=== PATIENT | male | born 1935 | race American Indian/Alaskan Native ===

== ENCOUNTER 2016-12-03 12:05 | Inpatient (IN) | payer MEDICARE ==
[~2016-12-03 12:05] MED LIST: ZITHROMAX 500 MG in NACL 0.9% 250ML 250 ML IV SCH
[2016-12-03] MEDS ORDERED: PROVENTIL IH ONE ×2 (13:13→13:18)
[2016-12-03] MEDS ORDERED: ATROVENT IH ONE ×3 (13:13→13:18)
[2016-12-03] MEDS ORDERED: LASIX IV ONE (13:18)
--- NOTE | 2016-12-03 13:19 | Emergency Department Report ---
HPI - General Chief Complaint: Dyspnea/Respdistress Time Seen by Provider: 12/03/16 13:11 - HPI HPI: PATIENT BROUGHT TO ER WITH SOB, LOW SATS, WEAKNESS AND CHEST DISCOMFORT. PATIENT DENIES ANY FEVER, BUT HAS COUGH, PRODUCTIVE OF WHITE SPUTUM, PATIENT WITH H/O HTN, AND TOBACCO ABUSE. ED Past Medical Hx - Surgical History Past Surgical History?: No - Family History Family history: hypertension - Social History Smoking Status: Current Every Day Smoker - Medications Home Medications: Home Medications Medication Instructions Recorded Confirmed Last Taken Type Ergocalciferol [Vitamin D2] 1 cap PO QWEEK 12/03/16 12/09/16 12/01/16 History Ipratropium/Albuter (Nf) 2 puff IH QID 12/03/16 12/09/16 Unknown History [Combivent Inhaler] Metoprolol [Lopressor TAB] 50 mg PO BID 12/03/16 12/09/16 12/03/16 History Ranitidine HCl [Zantac 300 MG TAB] 300 mg PO QPM 12/03/16 12/09/16 Unknown History Levofloxacin [Levaquin] 750 mg PO QDAY #7 tablet 12/05/16 12/09/16 Unknown Rx metFORMIN [Glucophage] 500 mg PO DAILY #30 12/05/16 12/09/16 12/03/16 Rx ED Review of Systems ROS: Stated complaint: SOB/CHEST TIGHTNESS/R HAND NUMBNESS Other details as noted in HPI Comment: All other systems reviewed and negative Cardiovascular: chest pain, palpitations, dyspnea on exertion, orthopnea Physical Exam - Physical Exam Physical Exam: gen: alert and oriented x3 heent: perrla, eomi cv: rrr, nl s1, s2, positive jvd bilaterally lungs: decrease b/s bilat, abd: s,nt,nd, pos bs ext: no edema neuro: no deficits psych: normal mood, skin-dry ED Medical Decision Making - Lab Data Result diagrams: 12/03/16 13:43 12/03/16 13:43 Critical care attestation.: If time is entered above; I have spent that time in minutes in the direct care of this critically ill patient, excluding procedure time. ED Disposition Clinical Impression: Aspiration pneumonia Qualifiers: Aspiration pneumonia type: unspecified Laterality: right Lung location: unspecified part of lung Qualified Code(s): J69.0 - Pneumonitis due to inhalation of food and vomit Disposition: DC-09 OP ADMIT IP TO THIS HOSP Is pt being admited?: Yes Does the pt Need Aspirin: No Condition: Stable
[2016-12-03] MEDS ORDERED: MAGNESIUM SULFATE 1 GM in NACL 0.9% 50 ML IV ONE (13:28)
[2016-12-03 14:09] LABS: Basophils % (Auto) 0.6 % (0.0-1.8); Eosinophils % (Auto) 0.1 % (0.0-4.3); Hematocrit 34.5 % (35.5-45.6); Hemoglobin 11.1 gm/dl (11.8-15.2); Mean Corpuscular HGB Conc 32 % (32-34); Mean Corpuscular Hemoglobin 32 pg (28-32); Mean Corpuscular Volume 98 fl (84-94); Platelet Count 266 K/mm3 (140-440); Red Blood Count 3.53 M/mm3 (3.65-5.03); Red Cell Distribution Width 14.9 % (13.2-15.2); White Blood Count 4.9 K/mm3 (4.5-11.0)
[2016-12-03 14:23] LABS: Anion Gap 22 mmol/L; BUN/Creatinine Ratio 22.14; Blood Urea Nitrogen 31 mg/dL (9-20); Calcium 8.8 mg/dL (8.4-10.2); Carbon Dioxide 25 mmol/L (22-30); Chloride 106.4 mmol/L (98-107); Glucose 173 mg/dL (75-100); Sodium 149 mmol/L (137-145)
--- NOTE | 2016-12-03 14:59 | XRay Report ---
AP CHEST: HISTORY: Chest pain, shortness of breath No recent comparison. Moderate bilateral lower lobe opacities are identified. This may represent aspiration. Congestion could be considered. The upper lung zones are relatively clear. No large pleural effusion or pneumothorax. Heart size is borderline. The aorta is well-defined. IMPRESSION: Bilateral lower lobe infiltrates concerning for aspiration or pulmonary edema. Please correlate with the patient's clinical presentation. Borderline heart size.
[2016-12-03] MEDS ORDERED: ROCEPHIN/NS 2 GM/100 ML 2 GM/100 ML BAG IV ONE (15:09)
[2016-12-03] MEDS ORDERED: BUMEX IV ONE (15:10)
--- NOTE | 2016-12-03 15:27 | History and Physical Report ---
History of Present Illness Chief complaint: I cant breathe, and i keep coughing up phlegm History of present illness: 81 YO Male with DM, Nicotine Dependence, HTN, Bronchitis presents to ED for evaluation. Pt states that he has experienced productive cough of white sputum for the past 2 days with worsening symptoms over the past day as well as chest discomfort after coughing episodes. Pt denies fever, chills, CP, Palpitations, NVD, unintentional weight loss, night sweats, hemopysis, syncope. Pt has had ill contacts over the past week. Pt seen and evaluated in ED and found to be in respiratory distress with an sao2 of 68% on room air. Pt placed on supplemental oxygen. Pt is able to protect his airway. Past History Past Medical History: diabetes, hypertension Past Surgical History: No surgical history, Other (reviewed) Social history: , lives with family, smoking. denies: alcohol abuse, prescription drug abuse, IV drug use Family history: hypertension Medications and Allergies Allergies Allergy/AdvReac Type Severity Reaction Status Date / Time No Known Allergies Allergy Verified 12/03/16 12:52 Home Medications Medication Instructions Recorded Confirmed Last Taken Type Ergocalciferol [Vitamin D2] 1 cap PO QWEEK 12/03/16 12/03/16 12/01/16 History Insulin Glargine,Hum.rec.anlog 10 units SQ QHS 12/03/16 12/03/16 12/02/16 History [Lantus Solostar] Ipratropium/Albuter (Nf) 2 puff IH QID 12/03/16 12/03/16 Unknown History [Combivent (Nf)] Losartan/Hydrochlorothiazide 1 each PO DAILY 12/03/16 12/03/16 12/03/16 History [Losartan-Hctz 100-25 mg Tab] Metoprolol [Lopressor TAB] 50 mg PO BID 12/03/16 12/03/16 12/03/16 History Ranitidine HCl [Zantac 300 MG TAB] 300 mg PO QPM 12/03/16 12/03/16 Unknown History amLODIPine [Norvasc] 10 mg PO DAILY 12/03/16 12/03/16 12/03/16 History metFORMIN [Glucophage] 500 mg PO BID 12/03/16 12/03/16 12/03/16 History Active Meds: Active Medications Ceftriaxone Sodium (Rocephin/Ns 2 Gm/100 Ml) 2 gm in 100 mls @ 200 mls/hr IV ONCE.ED ONE Stop: 12/03/16 15:38 Review of Systems All systems: negative Constitutional: no weight loss, no weight gain, no fever, no chills Ears, nose, mouth and throat: no ear pain, no ear discharge, no tinnitis Cardiovascular: no chest pain, no orthopnea, no rapid/irregular heart beat Respiratory: cough with sputum, excessive sputum, shortness of breath, no hemoptysis Gastrointestinal: no nausea, no vomiting, no diarrhea Genitourinary Male: no hematuria, no flank pain, no discharge Rectal: no incontinence, no bleeding Musculoskeletal: no neck pain, no shooting arm pain, no arm numbness/tingling Integumentary: no rash, no pruritis, no redness Neurological: no head injury, no transient paralysis, no paralysis Psychiatric: no anxiety, no memory loss, no change in sleep habits Endocrine: no cold intolerance, no heat intolerance, no polyphagia Hematologic/Lymphatic: no easy bruising, no easy bleeding Allergic/Immunologic: no urticaria, no allergic rhinitis, no wheezing Exam - Constitutional Vitals: Temp Pulse Resp BP Pulse Ox 98.4 F 88 17 106/67 90 12/03/16 12:52 12/03/16 14:00 12/03/16 14:00 12/03/16 14:00 12/03/16 14:00 General appearance: Present: mild distress - EENT Eyes: Present: PERRL ENT: hearing intact, clear oral mucosa - Neck Neck: Present: supple, normal ROM - Respiratory Respiratory: bilateral: diminished - Cardiovascular Heart Sounds: Present: S1 & S2. Absent: rub, click - Extremities Extremities: pulses symmetrical, No edema Peripheral Pulses: within normal limits - Abdominal General gastrointestinal: Present: soft, non-tender, non-distended, normal bowel sounds Male genitourinary: Present: normal - Integumentary Integumentary: Present: clear, warm, dry - Musculoskeletal Musculoskeletal: gait normal, strength equal bilaterally - Psychiatric Psychiatric: appropriate mood/affect, intact judgment & insight - Neurologic Neurologic: CNII-XII intact, moves all extremities Results - Labs CBC & Chem 7: 12/03/16 13:43 12/03/16 13:43 Labs: Abnormal lab results 12/03/16 12/03/16 Range/Units 13:43 13:43 RBC 3.53 L (3.65-5.03) M/mm3 Hgb 11.1 L (11.8-15.2) gm/dl Hct 34.5 L (35.5-45.6) % MCV 98 H (84-94) fl Lymph % (Auto) 10.1 L (13.4-35.0) % Harmon % (Auto) 8.5 H (0.0-7.3) % Lymph # 0.5 L (1.2-5.4) K/mm3 Seg Neutrophils % 80.7 H (40.0-70.0) % Sodium 149 H (137-145) mmol/L BUN 31 H (9-20) mg/dL Glucose 173 H (75-100) mg/dL Assessment and Plan - Patient Problems (1) Aspiration pneumonia Current Visit: Yes Status: Acute Qualifiers: Aspiration pneumonia type: A Laterality: L Lung location: L Plan to address problem: Pneumonia Protocol: IV abx, IVF, supportive care, nebulizer therapy, blood cultures, aspiration precautions, incentive spirometry (2) Acute respiratory failure Current Visit: Yes Status: Acute Qualifiers: Respiratory failure complication: R Plan to address problem: Supplemental oxygen, nebs, pulmonary toilet, NIPPV as clinically indicated. (3) HTN (hypertension) Current Visit: Yes Status: Acute Qualifiers: Hypertension type: H Plan to address problem: monitor bp q shift, (4) Diabetes Current Visit: Yes Status: Acute Qualifiers: Diabetes mellitus type: D Diabetes mellitus complication status: D Diabetes mellitus complication detail: D Diabetic retinopathy severity: D Proliferative retinopathy type: P Diabetes mellitus macular edema: D Diabetes mellitus mcfp insulin use: D Laterality: L Chronic kidney disease stage: C Plan to address problem: ADA diet, insulin, accu check (5) Nicotine dependence Current Visit: No Status: Acute Qualifiers: Nicotine product type: N Substance use status: S Plan to address problem: PT counseled. (6) DVT prophylaxis Current Visit: Yes Status: Acute
[2016-12-03 15:40] LABS: ISTAT Base Excess 2; ISTAT PCO2 52.8 (35-45); ISTAT PH 7.332 (7.35-7.45); ISTAT PO2 58 (80-105); ISTAT SO2 87; ISTAT TCO2 30
[2016-12-03] MEDS ORDERED: ROCEPHIN/NS 1 GM/50 ML 1 GM/50 ML BAG IV ONE (15:55)
[2016-12-03] MEDS: ROCEPHIN/NS 1 GM/50 ML 1 GM/50 ML BAG IV SCH (16:01)
--- NOTE | 2016-12-03 16:05 | Admit Criteria Form ---
Admission Criteria Documentation: PNEUMONIA DUE TO ASPIRATION Clinical Indications for Admission to Inpatient Care (Place 'X' for any and all applicable criteria): Admission to inpatient status for two midnights or more is indicated for ANY ONE of the following(1)(2)(3): [ ]I. Hemodynamic instability Respiratory abnormalities [X ]II. Hypoxemia [ ]III. Respiratory findings (eg, dyspnea, Tachypnea) that persist despite treatment (eg, in emergency department, observation care) [ ]IV. Altered mental status that is severe or persistent [ ]V. Dehydration that is severe or persistent [ ]. Failure of outpatient treatment [ ]VII. Uncompensated respiratory acidosis (eg, hypercapnia, pH below 7.35) [ ]VIII. Ability of patient to protect airway unclear [ ]IX. Aspiration pneumonitis associated with an acute event (e.g., hematemesis, drug overdose) that requires inpatient care [ ]X. Patient receives chronic care in a setting (eg, fdc care, fdc facility) where care for the aspiration has failed or cannot be provided (eg, patient is clinically unstable, and aggressive medical are is desired) (4) Extended stay beyond goal length of stay may be needed for(1)(6): [ ]a) Continued aspiration [ ]b) Severe or nosocomial infection [ ]c) Empyema, atelectasis, large pleural effusion or lung abscess [ ]d) Severe hypoxemia or respiratory failure [ ]e) Comorbid clinically significant electrolyte disorder or acute renal injury (eg, hypernatremia, hyponatremia) [ ]f) Need for parenteral or tube (enteral) feedings (eg, severe malnutrition [ ]g) Active comorbidities (eg, heart failure, COPD, renal failure) [ ]h) Comorbid severe neurologic problems(2)(17) The original [facility] content created by [employer] has been revised. The portions of the content which have been revised are identified through the use of italic text or in bold, and [facility] has neither reviewed nor approved the modified material. All other unmodified content is copyright [facility]. Please see references footnoted in the original [facility] edition 2017 Admission Criteria Met: Yes
[2016-12-03] MEDS ORDERED: D50W (25GM) Syringe IV PRN (17:03)
[2016-12-03] MEDS: NOVOLOG SUB-Q SCH (22:50)
[2016-12-03] MEDS: ZITHROMAX 500 MG in NACL 0.9% 250ML 250 ML IV SCH (22:50)
[2016-12-04] MEDS: ROCEPHIN/NS 1 GM/50 ML 1 GM/50 ML BAG IV SCH (11:17)
[2016-12-04] MEDS: NOVOLOG SUB-Q SCH ×4 (11:17→21:52)
--- NOTE | 2016-12-04 12:43 | Progress Note ---
Assessment and Plan Assessment and plan: 81 YO Male with DM, Nicotine Dependence, HTN, Bronchitis who presented with cough, shortness of breath. Patient was found to have pneumonia for which she received antibiotics. He also had acute hypoxic respiratory failure for which she received supplemental oxygen and he is being discharged home on home oxygen. He was continued on the rest of his home medications for his chronic medical conditions. Of note his blood pressure was normotensive therefore his blood pressure medications were DC'd. He also had low to normal glucose, therefore his diabetes management regimen was reduced significantly. Patient was counseled about nicotine dependence and he verbalized understanding given hypoxia and pneumonia he should no longer smoke, him and his verbally understood this. diagnosis Aspiration pneumonitis repeat CXR, and check echo to ensure it is not CHF Acute respiratory failure with hypoxia continue oxygen Hypertension hold home meds as he is normotensive Diabetes, type II, [id number] hold PO meds and his glucose is normal Nicotine dependence/abuse has been counseled History Interval history: He is complaining of cough, nonproductive weakness and shortness of breath Hospitalist Physical - Physical exam Narrative exam: General: Patient appears well in no distress HEENT: MMM, EOMI cardiac: S1-S2 heard lungs: Bibasilar crackles abdomen: soft, nontender, nondistended bowel sounds positive extremities: no edema clubbing or cyanosis Skin: no rash or lesion Neuro: no focal deficit Psych: appropriate behavior and mood, cognition intact - Constitutional Vitals: Temp Pulse Resp BP Pulse Ox 98.6 F 95 H 20 127/78 96 12/04/16 10:00 12/04/16 10:00 12/04/16 10:00 12/04/16 10:00 12/04/16 10:00 General appearance: Present: mild distress Results - Labs CBC & Chem 7: 12/03/16 13:43 12/03/16 13:43 Labs: Laboratory Last Values WBC 4.9 K/mm3 (4.5-11.0) 12/03/16 13:43 RBC 3.53 M/mm3 (3.65-5.03) L 12/03/16 13:43 Hgb 11.1 gm/dl (11.8-15.2) L 12/03/16 13:43 Hct 34.5 % (35.5-45.6) L 12/03/16 13:43 MCV 98 fl (84-94) H 12/03/16 13:43 MCH 32 pg (28-32) 12/03/16 13:43 MCHC 32 % (32-34) 12/03/16 13:43 RDW 14.9 % (13.2-15.2) 12/03/16 13:43 Plt Count 266 K/mm3 (140-440) 12/03/16 13:43 Lymph % (Auto) 10.1 % (13.4-35.0) L 12/03/16 13:43 [place] % (Auto) 8.5 % (0.0-7.3) H 12/03/16 13:43 Eos % (Auto) 0.1 % (0.0-4.3) 12/03/16 13:43 Baso % (Auto) 0.6 % (0.0-1.8) 12/03/16 13:43 Lymph # 0.5 K/mm3 (1.2-5.4) L 12/03/16 13:43 [place] # 0.4 K/mm3 (0.0-0.8) 12/03/16 13:43 Eos # 0.0 K/mm3 (0.0-0.4) 12/03/16 13:43 Baso # 0.0 K/mm3 (0.0-0.1) 12/03/16 13:43 Seg Neutrophils % 80.7 % (40.0-70.0) H 12/03/16 13:43 Seg Neutrophils # 3.9 K/mm3 (1.8-7.7) 12/03/16 13:43 POC ABG pH 7.332 (7.35-7.45) L 12/03/16 15:33 POC ABG pCO2 52.8 (35-45) H 12/03/16 15:33 POC ABG pO2 58 (80-105) L 12/03/16 15:33 POC ABG HCO3 28.0 12/03/16 15:33 POC ABG Total CO2 30 12/03/16 15:33 POC ABG O2 Sat 87 12/03/16 15:33 POC ABG Base Excess 2 12/03/16 15:33 FiO2 32 % 12/03/16 15:33 Sodium 149 mmol/L (137-145) H 12/03/16 13:43 Potassium 4.0 mmol/L (3.6-5.0) 12/03/16 13:43 Chloride 106.4 mmol/L (98-107) 12/03/16 13:43 Carbon Dioxide 25 mmol/L (22-30) 12/03/16 13:43 Anion Gap 22 mmol/L 12/03/16 13:43 BUN 31 mg/dL (9-20) H 12/03/16 13:43 Creatinine 1.4 mg/dL (0.8-1.5) 12/03/16 13:43 Estimated GFR 59 ml/min 12/03/16 13:43 BUN/Creatinine Ratio 22.14 % 12/03/16 13:43 Glucose 173 mg/dL (75-100) H 12/03/16 13:43 POC Glucose 145 (70-105) H 12/04/16 08:32 Lactic Acid 4.70 mmol/L (0.7-2.0) H* 12/03/16 15:26 Calcium 8.8 mg/dL (8.4-10.2) 12/03/16 13:43 Troponin T < 0.010 ng/mL (0.00-0.029) 12/03/16 20:21 NT-Pro-B Natriuret Pep 1194 pg/mL (0-900) H 12/03/16 13:43 - Imaging and Cardiology CT scan - chest: image reviewed (bibasilar infiltrates)
[2016-12-04] MEDS ORDERED: NON-FORMULARY (Ipratropium/Albuter (Nf) 2 PUFF) IH SCH (14:00)
--- NOTE | 2016-12-04 14:08 | XRay Report ---
CHEST 2 VIEWS INDICATION: Shortness of breath. COMPARISON: Yesterday. FINDINGS: Frontal and lateral chest radiographs, 1:23 PM, 12/04/2016 demonstrates improved bibasilar infiltrates, though mild remain, left more than right. Minimal bilateral pleural effusions also suspected. Normal cardiomediastinal silhouette. Mild fluid or thickening along the major fissures as well. Intact bones. CONCLUSION: Improving predominantly bibasilar infiltrates/edema, as described. Thank you for the opportunity to participate in this patient's care.
[2016-12-04] MEDS: ZITHROMAX 500 MG in NACL 0.9% 250ML 250 ML IV SCH (15:52)
[2016-12-04] MEDS: LASIX IV SCH (15:53)
[2016-12-04] MEDS: DUONEB *Not for PRN Use IH SCH ×2 (17:36→20:19)
[2016-12-04] MEDS ORDERED: NON-FORMULARY (Ranitidine Hcl [Zantac 300 Mg Tab] 300 MG) PO SCH (18:00)
[2016-12-04] MEDS: PEPCID PO SCH (21:53)
[2016-12-04] MEDS: LOPRESSOR PO SCH (21:54)
[2016-12-05] MEDS: LASIX IV SCH ×2 (01:07→14:04)
[2016-12-05] MEDS: NOVOLOG SUB-Q SCH ×2 (08:00→12:21)
[2016-12-05] MEDS: DUONEB *Not for PRN Use IH SCH ×2 (08:02→14:10)
[2016-12-05] MEDS: PEPCID PO SCH (09:26)
[2016-12-05] MEDS: ZITHROMAX 500 MG in NACL 0.9% 250ML 250 ML IV SCH (09:31)
[2016-12-05] MEDS ORDERED: NORVASC PO SCH (10:00)
[2016-12-05] MEDS: LOPRESSOR PO SCH (10:00)
--- NOTE | 2016-12-05 10:05 | Consultation ---
History of Present Illness Consult date: 12/05/16 Requesting physician: REAL POLLARD Consult reason: congestive heart failure History of present illness: The pt is an 81 YO male with a past medical history significant for HTN, DM, former tobacco use, PNA, inguinal hernia repair. He is previously unknown to our practice. He presented with c/o progressively worsening SOB and low O2 sats at home x 4 days [employer]. O2 sats were found to be 68% on room air in ED. He denies chest pain, palpitations, cough, orthopnea, fever, chills, n/v, diaphoresis, dizziness or syncope. He denies any prior cardiac issues or ever seeing a district gauger. Admission CXR showed bilateral lower lobe infiltrates concerning for aspiration PNA or pulmonary edema per radiology - however, independent review of CXR is more c/w PNA. Lactic acid 4.7; pro-BNP 1194. He was noted to have 6 beat run NSVT on tele this AM. Past History Past Medical History: diabetes, hypertension, other (PNA 5 times) Past Surgical History: Other (hernia repair 6 years ago) Social history: , lives with family, smoking (former). denies: alcohol abuse, prescription drug abuse, IV drug use Family history: hypertension Medications and Allergies Allergies Allergy/AdvReac Type Severity Reaction Status Date / Time No Known Allergies Allergy Verified 12/03/16 12:52 Home Medications Medication Instructions Recorded Confirmed Last Taken Type Ergocalciferol [Vitamin D2] 1 cap PO QWEEK 12/03/16 12/03/16 12/01/16 History Insulin Glargine,Hum.rec.anlog 10 units SQ QHS 12/03/16 12/03/16 12/02/16 History [Lantus Solostar] Ipratropium/Albuter (Nf) 2 puff IH QID 12/03/16 12/03/16 Unknown History [Combivent (Nf)] Losartan/Hydrochlorothiazide 1 each PO DAILY 12/03/16 12/03/16 12/03/16 History [Losartan-Hctz 100-25 mg Tab] Metoprolol [Lopressor TAB] 50 mg PO BID 12/03/16 12/03/16 12/03/16 History Ranitidine HCl [Zantac 300 MG TAB] 300 mg PO QPM 12/03/16 12/03/16 Unknown History amLODIPine [Norvasc] 10 mg PO DAILY 12/03/16 12/03/16 12/03/16 History metFORMIN [Glucophage] 500 mg PO BID 12/03/16 12/03/16 12/03/16 History Active Meds: Active Medications Albuterol/Ipratropium (Duoneb *Not For Prn Use*) 1 ampul IH QIDRT [facility] Last Admin: 12/05/16 08:02 Dose: 1 ampul Amlodipine Besylate (Norvasc) 10 mg PO DAILY [facility] Dextrose (D50w (25gm)) 50 ml IV PRN PRN PRN Reason: Hypoglycemia Ergocalciferol (Vitamin D2) 50,000 unit PO Mo [facility] Famotidine (Pepcid) 20 mg PO BID [facility] Last Admin: 12/05/16 09:26 Dose: 20 mg Furosemide (Lasix) 40 mg IV Q12H [facility] Last Admin: 12/05/16 01:07 Dose: 40 mg Azithromycin 500 mg/ Sodium (Chloride) 250 mls @ 250 mls/hr IV Q24HR [facility] PRN Reason: Protocol Last Admin: 12/05/16 09:31 Dose: 250 mls/hr Insulin Aspart (Novolog) 0 units SUB-Q ACHS [facility] PRN Reason: Protocol Last Admin: 12/05/16 08:00 Dose: Not Given Metoprolol Tartrate (Lopressor) 50 mg PO BID [facility] Last Admin: 12/04/16 21:54 Dose: 50 mg Review of Systems Constitutional: no weight loss, no weight gain, no fever, no chills, no sweats Ears, nose, mouth and throat: no ear pain, no nose pain, no sinus pressure, no sinus pain Cardiovascular: shortness of breath, dyspnea on exertion, no chest pain, no orthopnea, no palpitations, no rapid/irregular heart beat, no edema, no syncope , no lightheadedness, no paroxysmal nocturnal dyspnea, no leg edema Respiratory: shortness of breath, dyspnea on exertion, no cough, no congestion, no wheezing, no pain on inspiration Gastrointestinal: no abdominal pain, no nausea, no vomiting, no diarrhea, no constipation, no change in bowel habits Genitourinary Male: no dysuria, no hematuria, no flank pain, no discharge, no urinary frequency, no urinary hesitancy Musculoskeletal: no neck stiffness, no neck pain, no shooting arm pain, no arm numbness/tingling, no low back pain, no shooting leg pain, no leg numbness/ tingling, no redness of joints Integumentary: no rash, no pruritis, no redness, no sores, no wounds Neurological: no head injury, no paralysis, no weakness, no parathesias, no numbness, no tingling, no seizures, no syncope Psychiatric: no anxiety Endocrine: no cold intolerance, no heat intolerance Hematologic/Lymphatic: no easy bruising, no easy bleeding, no lymphadenopathy Allergic/Immunologic: no urticaria, no wheezing Physical Examination Last Vital Signs Temp 98.4 F 12/04/16 22:00 Pulse 71 12/05/16 08:10 Resp 16 12/05/16 08:10 BP 122/76 12/04/16 22:00 Pulse Ox 97 12/05/16 07:55 General appearance: no acute distress HEENT: Positive: PERRL, Normocephaly, Mucus Membranes Moist Neck: Positive: neck supple, trachea midline Cardiac: Positive: Reg Rate and Rhythm, S1/S2 Lungs: Positive: Rhonchi Neuro: Positive: Grossly Intact, Cranial Nerve 2-12 Intact Abdomen: Positive: Unremarkable, Soft, Active Bowel Sounds. Negative: Tender Skin: Positive: Clear. Negative: Rash, Wound Musculoskeletal: No Fluid Collection, No Pain, Normal Range of Motion Extremities: Absent: edema Results 12/03/16 13:43 12/03/16 13:43 - Imaging and Cardiology Echo: report reviewed (12/04/2016: EF 60 - 65%, moderate TR. ) EKG: image reviewed EKG interpretations - Telemetry EKG Rhythm: Sinus Rhythm - EKG Sinus rhythms and dysrhythmias: sinus rhythm Myocardial infarction: anterior NE (old age or i Assessment and Plan Assessment: Bilateral PNA Acute respiratory failure Lactic acidosis NSVT - 6 beat run noted on tele this AM; pt asymptomatic. HTN DM H/o recurrent PNA H/o tobacco use Plan: Echo reviewed - EF 60 - 65%, moderate TR. No current clinical evidence of acute heart failure. Repeat BMP and Mg in AM and replete lytes as necessary to maintain serum K+ ~4 and serum Mg ~2. Cont lopressor, 50mg PO BID. Consider ischemic evaluation as OP once medically stabilized for risk stratification. Will see PRN. Recommend pt to follow up in our office with Destiny Iverson NP, within 2 weeks of hospital discharge ([phone]). Assessment and plan reviewed with pt and pt's at bedside. The patient has been seen in conjunction with Dr. Angel Andujar who agrees with the assessment and plan of care.
[2016-12-05 10:33] VITALS: BP 104/71
--- NOTE | 2016-12-05 11:34 | Discharge Summary ---
Providers - Providers Date of Admission: 12/03/16 15:41 Attending physician: REAL POLLARD MD 12/04/16 16:58 Consult to Physician [CONS] Routine Consulting Provider: FAVIO PATRICIO Reason For Exam: chf Place consult to:: Notified:: Phone number called:: [phone] Was contact made?: Yes If yes, spoke with:: LEEROY Time called:: 05:15 Comment:: SACHI Primary care physician: [facility] Hospitalization Condition: Stable Hospital course: 81 YO Male with DM, Nicotine Dependence, HTN, Bronchitis who presented with cough, shortness of breath. Patient was found to have pneumonia for which she received antibiotics. He also had acute hypoxic respiratory failure for which she received supplemental oxygen and he is being discharged home on home oxygen. He was continued on the rest of his home medications for his chronic medical conditions. Of note his blood pressure was normotensive therefore his blood pressure medications were DC'd. He also had low to normal glucose, therefore his diabetes management regimen was reduced significantly. Patient was counseled about nicotine dependence and he verbalized understanding given hypoxia and pneumonia he should no longer smoke, him and his verbally understood this. Discharge diagnosis Aspiration pneumonitis Acute respiratory failure with hypoxia Hypertension Diabetes, type II, [id number] Nicotine dependence/abuse Disposition: DC/[place]-06 HOME UNDER HOME [facility] Time spent for discharge: 33 minutes Core Measure Documentation - Palliative Care Palliative Care/ Comfort Measures: Not Applicable - Core Measures Any of the following diagnoses?: none Exam - Physical Exam Narrative exam: General: Patient appears well in no distress HEENT: MMM, EOMI cardiac: S1-S2 heard lungs: Bibasilar crackles abdomen: soft, nontender, nondistended bowel sounds positive extremities: no edema clubbing or cyanosis Skin: no rash or lesion Neuro: no focal deficit Psych: appropriate behavior and mood, cognition intact - Constitutional Vitals: Temp Pulse Resp BP Pulse Ox 98.3 F 74 20 104/71 97 12/05/16 10:00 12/05/16 10:00 12/05/16 10:00 12/05/16 10:00 12/05/16 07:55 Plan Follow up with: GANGA TOLEDO MD [Primary Care Provider] - 3-5 Days Prescriptions: Levofloxacin [Levaquin] 750 mg PO QDAY #7 tablet
[2016-12-08] MEDS ORDERED: VITAMIN D2 PO SCH (10:00)
== END 2016-12-05 16:35 | disposition home or self-care (01) | DRG 177 ==
LOC: ED 12:05 → CC2 15:41
PROVIDERS: ADMIT Internal Medicine; ATTEND Internal Medicine
PROC: 4A033R1 Measurement of Arterial Saturation, Peripheral, Percutaneous Approach (ICD-10-PCS; principal; 2016-12-03)
DX: J69.0 Pneumonitis due to inhalation of food and vomit (principal); J96.01 Acute respiratory failure with hypoxia; E87.2 Acidosis; I47.1 Supraventricular tachycardia; F17.200 Nicotine dependence, unspecified, uncomplicated; E11.9 Type 2 diabetes mellitus without complications; I10 Essential (primary) hypertension; J40 Bronchitis, not specified as acute or chronic; Z71.6 Tobacco abuse counseling; Z82.49 Family history of ischemic heart disease and other diseases of the circulatory system; Z79.899 Other long term (current) drug therapy; Z87.01 Personal history of pneumonia (recurrent)
CPT/HCPCS: 36415; 71010; 71020; 80048; 82140; 82803; 82962; 83880; 84484; 85025; 87040; 93005; 93010; 93306; 94640; 94644; 94760; 96365; 96375; 99285; J0456; J0696; J1815; J1940; J2930; J3475; J7050

== ENCOUNTER 2017-05-08 13:01 | Emergency (ER) | payer MEDICARE ==
[2017-05-08 13:30] VITALS: BP 112/74
--- NOTE | 2017-05-08 14:07 | XRay Report ---
CHEST 2 VIEWS INDICATION: Shortness of breath. COMPARISON: 12/09/2016 FINDINGS: Frontal and lateral chest radiographs demonstrate improved inspiration/bibasilar aeration without significant pleural effusions or CHF. Pulmonary hyperinflation/COPD. Stable cardiomediastinal silhouette. Thoracic spine straightening. CONCLUSION: No acute chest process with resolved bibasilar atelectasis, as described. Thank you for the opportunity to participate in this patient's care.
[2017-05-08 14:57] LABS: Basophils % (Auto) 1.4 % (0.0-1.8); Eosinophils # (Auto) 0.1 K/mm3 (0.0-0.4); Eosinophils % (Auto) 1.6 % (0.0-4.3); Hematocrit 35.7 % (35.5-45.6); Hemoglobin 11.5 gm/dl (11.8-15.2); Lymphocytes # (Auto) 0.9 K/mm3 (1.2-5.4); Lymphocytes % (Auto) 24.9 % (13.4-35.0); Mean Corpuscular HGB Conc 32 % (32-34); Mean Corpuscular Hemoglobin 31 pg (28-32); Mean Corpuscular Volume 95 fl (84-94); Monocytes # (Auto) 0.5 K/mm3 (0.0-0.8); Monocytes % (Auto) 12.6 % (0.0-7.3); Platelet Count 259 K/mm3 (140-440); Red Blood Count 3.76 M/mm3 (3.65-5.03)
== END 2017-05-08 19:10 | disposition left against medical advice (07) ==
LOC: ED 13:01
DX: Z53.21 Procedure and treatment not carried out due to patient leaving prior to being seen by health care provider (principal)
CPT/HCPCS: 36415; 71046; 80048; 85025

== ENCOUNTER 2017-06-25 10:52 | Inpatient (IN) | payer MEDICARE ==
--- NOTE | 2017-06-25 11:38 | Emergency Department Report ---
ED Shortness of Breath HPI - General Chief Complaint: Dyspnea/Respdistress Stated Complaint: LOW O2 READINGS Time Seen by Provider: 06/25/17 11:27 Source: patient Mode of arrival: Ambulatory Limitations: No Limitations - History of Present Illness Initial Comments: This is a pleasant 81-year-old gentleman who was recently admitted last year for double pneumonia and has a history of COPD who comes to the hospital today complaining of shortness of breath. The reports that last night his O2 sats were around 59%. This morning she says she could not obtain a note to saturation. She put him on oxygen and brought him to the emergency room. The patient reports being weak but he denies any chest pain. He has a slight cough. He is a former smoker denies any alcohol or illicit drug use denies any nausea vomiting diarrhea patient normally is ambulatory at home. Denies a history of heart failure. He does use oxygen at night. He has a past surgical history of left hernia repair as well as a procedure done on his prostate. MD Complaint: shortness of breath, cough -: Gradual, days(s) (1) Severity: moderate Consistency: constant Improves With: oxygen Worsens With: exertion Known History Of: COPD, recurrent pnemonia Associated Symptoms: denies other symptoms, cough Treatments Prior to Arrival: oxygen - Related Data Home Oxygen Therapy: Yes Home Oxygen Amount: 2 Liters Home Medications Medication Instructions Recorded Confirmed Last Taken Metoprolol [Lopressor TAB] 50 mg PO BID 12/03/16 06/25/17 06/25/17 Ranitidine HCl [Zantac 300 MG TAB] 300 mg PO BID 12/03/16 06/25/17 06/25/17 Amlodipine Besylate [Norvasc] 10 mg PO QDAY 06/25/17 06/25/17 06/25/17 Insulin Glargine,Hum.rec.anlog 10 units SUB-Q HS 06/25/17 06/25/17 06/24/17 [Lantus Solostar] Ipratropium/Albuterol Sulfate 1 puff IH QID 06/25/17 06/25/17 06/25/17 [Combivent Respimat] Ipratropium/Albuterol Sulfate 1 ampul IH QID 06/25/17 06/25/17 06/25/17 [DUONEB *Not for PRN Use*] Losartan/Hydrochlorothiazide 1 each PO QDAY 06/25/17 06/25/17 06/25/17 [Losartan-Hctz 100-25 mg Tab] Megestrol [Megace] 5 ml PO QAM 06/25/17 06/25/17 06/25/17 metFORMIN [Glucophage] 500 mg PO BID 06/25/17 06/25/17 06/25/17 Allergies Allergy/AdvReac Type Severity Reaction Status Date / Time No Known Allergies Allergy Verified 05/08/17 13:24 ED Review of Systems ROS: Stated complaint: LOW O2 READINGS Other details as noted in HPI Comment: All other systems reviewed and negative Constitutional: see HPI Eyes: as per HPI ENT: as per HPI Respiratory: see HPI Cardiovascular: as per HPI Endocrine: see HPI Gastrointestinal: as per HPI Genitourinary: as per HPI Musculoskeletal: as per HPI Skin: as per HPI Neurological: as per HPI Psychiatric: as per HPI Hematological/Lymphatic: as per HPI ED Past Medical Hx - Past Medical History Hx Hypertension: Yes Hx Congestive Heart Failure: Yes Hx Diabetes: Yes Hx HIV: No Additional medical history: BPH, pneumonia - Surgical History Additional Surgical History: hernia - Social History Smoking Status: Never Smoker Substance Use Type: None - Medications Home Medications: Home Medications Medication Instructions Recorded Confirmed Last Taken Type Metoprolol [Lopressor TAB] 50 mg PO BID 12/03/16 06/25/17 06/25/17 History Ranitidine HCl [Zantac 300 MG TAB] 300 mg PO BID 12/03/16 06/25/17 06/25/17 History Amlodipine Besylate [Norvasc] 10 mg PO QDAY 06/25/17 06/25/17 06/25/17 History Insulin Glargine,Hum.rec.anlog 10 units SUB-Q HS 06/25/17 06/25/17 06/24/17 History [Lantus Solostar] Ipratropium/Albuterol Sulfate 1 puff IH QID 06/25/17 06/25/17 06/25/17 History [Combivent Respimat] Ipratropium/Albuterol Sulfate 1 ampul IH QID 06/25/17 06/25/17 06/25/17 History [DUONEB *Not for PRN Use*] Losartan/Hydrochlorothiazide 1 each PO QDAY 06/25/17 06/25/17 06/25/17 History [Losartan-Hctz 100-25 mg Tab] Megestrol [Megace] 5 ml PO QAM 06/25/17 06/25/17 06/25/17 History metFORMIN [Glucophage] 500 mg PO BID 06/25/17 06/25/17 06/25/17 History ED Physical Exam - General Limitations: No Limitations General appearance: alert, in no apparent distress - Head Head exam: Present: atraumatic - Eye Eye exam: Present: normal appearance, PERRL, EOMI - ENT ENT exam: Present: normal exam - Neck Neck exam: Present: normal inspection - Respiratory Respiratory exam: Present: normal lung sounds bilaterally. Absent: wheezes, rales, rhonchi, stridor, chest wall tenderness, accessory muscle use, decreased breath sounds - Cardiovascular Cardiovascular Exam: Present: regular rate, normal rhythm, normal heart sounds - GI/Abdominal GI/Abdominal exam: Present: soft, normal bowel sounds. Absent: tenderness - Rectal Rectal exam: Present: deferred - Extremities Exam Extremities exam: Present: normal inspection, full ROM, normal capillary refill. Absent: pedal edema, joint swelling - Back Exam Back exam: Present: normal inspection - Neurological Exam Neurological exam: Present: alert, oriented X3, CN II-XII intact - Psychiatric Psychiatric exam: Present: normal affect - Skin Skin exam: Present: warm, dry, intact, normal color ED Course Vital Signs 06/25/17 06/25/17 06/25/17 11:00 11:03 11:08 Temperature 97.9 F Pulse Rate 79 68 Pulse Rate [ Throughout] Respiratory 16 16 Rate Respiratory Rate [ Throughout] Blood Pressure 115/70 O2 Sat by Pulse 64 L 89 87 Oximetry 06/25/17 06/25/17 06/25/17 11:12 11:18 11:31 Temperature Pulse Rate 70 67 Pulse Rate [ Throughout] Respiratory 20 18 19 Rate Respiratory Rate [ Throughout] Blood Pressure 112/63 O2 Sat by Pulse 91 85 91 Oximetry 06/25/17 06/25/17 06/25/17 11:37 11:45 12:01 Temperature 98.1 F Pulse Rate 68 63 Pulse Rate [ Throughout] Respiratory 22 19 Rate Respiratory Rate [ Throughout] Blood Pressure 112/63 115/71 O2 Sat by Pulse 91 85 80 L Oximetry 06/25/17 06/25/17 06/25/17 12:15 12:30 12:45 Temperature Pulse Rate 68 67 74 Pulse Rate [ Throughout] Respiratory 18 17 19 Rate Respiratory Rate [ Throughout] Blood Pressure 115/71 113/66 113/66 O2 Sat by Pulse 71 L 95 83 L Oximetry 06/25/17 06/25/17 13:50 14:23 Temperature Pulse Rate Pulse Rate [ 70 74 Throughout] Respiratory Rate Respiratory 18 18 Rate [ Throughout] Blood Pressure O2 Sat by Pulse Oximetry - Reevaluation(s) Reevaluation #1: 06/25/17 11:42 It appears that the patient is having a COPD exacerbation at this time. We'll go ahead and give the patient DuoNeb as well as Solu-Medrol 125 mg IV. We'll also go and get a chest x-ray and do blood work. The patient's oxygen saturation was in the low 70s at triage. Currently he is 91% on 4 L in the exam room. Patient appears to be improved from previous. He is stable at this time. 06/25/17 14:55 I discussed the case with Dr. Cantrell. At this time we'll go ahead and admit the patient. The patient is well known to him. ED Medical Decision Making - Lab Data Result diagrams: 06/25/17 11:36 06/25/17 11:36 Critical care attestation.: If time is entered above; I have spent that time in minutes in the direct care of this critically ill patient, excluding procedure time. ED Disposition Clinical Impression: COPD exacerbation, COPD with acute exacerbation Disposition: -09 OP ADMIT IP TO THIS HOSP Is pt being admited?: Yes Does the pt Need Aspirin: No Condition: Stable Instructions: Chronic Obstructive Pulmonary Disease (ED) Referrals: PRIMARY CARE, [Primary Care Provider] - 3-5 Days
[2017-06-25 11:52] LABS: Basophils % (Auto) 1.1 % (0.0-1.8); Eosinophils % (Auto) 0.6 % (0.0-4.3); Hematocrit 32.1 % (35.5-45.6); Hemoglobin 10.2 gm/dl (11.8-15.2); Lymphocytes # (Auto) 0.7 K/mm3 (1.2-5.4); Lymphocytes % (Auto) 16.7 % (13.4-35.0); Mean Corpuscular HGB Conc 32 % (32-34); Mean Corpuscular Hemoglobin 31 pg (28-32); Mean Corpuscular Volume 99 fl (84-94); Monocytes # (Auto) 0.4 K/mm3 (0.0-0.8); Monocytes % (Auto) 10.4 % (0.0-7.3); Platelet Count 264 K/mm3 (140-440); Red Blood Count 3.23 M/mm3 (3.65-5.03); Red Cell Distribution Width 16.4 % (13.2-15.2)
[2017-06-25 12:03] LABS: INR 1.08 (0.87-1.13)
[2017-06-25 12:04] LABS: Partial Thromboplastin Time 32.6 Sec. (24.2-36.6)
[2017-06-25 12:17] LABS: Albumin 3.7 g/dL (3.9-5); Calcium 8.6 mg/dL (8.4-10.2)
[2017-06-25] MEDS ORDERED: ROCEPHIN/NS 1 GM/50 ML 1 GM/50 ML BAG IV ONE (12:19)
--- NOTE | 2017-06-25 12:26 | XRay Report ---
AP CHEST: HISTORY: Dyspnea Patchy infiltrates have developed in both lower lung zones since 05/08/17 exam. The upper lung zones are relatively clear. No large pleural effusion or pneumothorax. Normal heart and mediastinal structures. IMPRESSION: Bilateral lower lobe infiltrates concerning for pneumonia or aspiration.
[2017-06-25] MEDS ORDERED: cefTRIAXone 1 GM in NACL 0.9% 20 ML IV ONE (13:00)
[2017-06-25] MEDS ORDERED: DUONEB *Not for PRN Use IH ONE (13:27)
[2017-06-25 13:30] LABS: Bilirubin,Urine NEG (Negative); Blood,Urine NEG (Negative); Color,Urine Yellow (Yellow); Mucus,Urine FEW /HPF; Urobilinogen,Urine < 2.0 mg/dL (<2.0)
[2017-06-25] MEDS ORDERED: NON-FORMULARY (Losartan/Hydrochlorothiazide [Losartan-Hctz 100-25 Mg Tab] 1 EACH) PO SCH (21:15)
--- NOTE | 2017-06-25 21:15 | History and Physical Report ---
History of Present Illness Date of examination: 06/25/17 Date of admission: 06/25/17 15:17 Chief complaint: Severe SOB 2 days History of present illness: History of Present Illness This is a pleasant 81-year-old gentleman who was recently admitted last year for double pneumonia and has a history of COPD who comes to the hospital today complaining of shortness of breath. The reports that last night his O2 sats were around 59%. This morning she says she could not obtain a note to saturation. She put him on oxygen and brought him to the emergency room. The patient reports being weak but he denies any chest pain. He has a slight cough. He is a former smoker denies any alcohol or illicit drug use denies any nausea vomiting diarrhea patient normally is ambulatory at home. Denies a history of heart failure. He does use oxygen at night. He has a past surgical history of left hernia repair as well as a procedure done on his prostate. MD Complaint: shortness of breath, cough -: Gradual, days(s) (1) Severity: moderate Consistency: constant Improves With: oxygen Worsens With: exertion Known History Of: COPD, recurrent pnemonia Associated Symptoms: denies other symptoms, cough Treatments Prior to Arrival: oxygen - Related Data Home Oxygen Therapy: Yes Home Oxygen Amount: 2 Liters Past Medical History Hx Hypertension: Yes Hx Congestive Heart Failure: Yes Hx Diabetes: Yes Hx HIV: No Additional medical history: BPH, pneumonia - Surgical History Additional Surgical History: hernia - Social History Smoking Status: Never Smoker Substance Use Type: None - Medications Home Medications: Home Medications Medication Instructions Recorded Confirmed Last Taken Type Metoprolol [Lopressor TAB] 50 mg PO BID 12/03/16 06/25/17 06/25/17 History Ranitidine HCl [Zantac 300 MG TAB] 300 mg PO BID 12/03/16 06/25/17 06/25/17 History Amlodipine Besylate [Norvasc] 10 mg PO QDAY 06/25/17 06/25/17 06/25/17 History Insulin Glargine,Hum.rec.anlog 10 units SUB-Q HS 06/25/17 06/25/17 06/24/17 History [Lantus Solostar] Ipratropium/Albuterol Sulfate 1 puff IH QID 06/25/17 06/25/17 06/25/17 History [Combivent Respimat] Ipratropium/Albuterol Sulfate 1 ampul IH QID 06/25/17 06/25/17 06/25/17 History [DUONEB *Not for PRN Use*] Losartan/Hydrochlorothiazide 1 each PO QDAY 06/25/17 06/25/17 06/25/17 History [Losartan-Hctz 100-25 mg Tab] Megestrol [Megace] 5 ml PO QAM 06/25/17 06/25/17 06/25/17 History metFORMIN [Glucophage] 500 mg PO BID 06/25/17 06/25/17 06/25/17 History Medications and Allergies Allergies Allergy/AdvReac Type Severity Reaction Status Date / Time No Known Allergies Allergy Verified 05/08/17 13:24 Home Medications Medication Instructions Recorded Confirmed Last Taken Type Metoprolol [Lopressor TAB] 50 mg PO BID 12/03/16 06/25/17 06/25/17 History Ranitidine HCl [Zantac 300 MG TAB] 300 mg PO BID 12/03/16 06/25/17 06/25/17 History Amlodipine Besylate [Norvasc] 10 mg PO QDAY 06/25/17 06/25/17 06/25/17 History Insulin Glargine,Hum.rec.anlog 10 units SUB-Q HS 06/25/17 06/25/17 06/24/17 History [Lantus Solostar] Ipratropium/Albuterol Sulfate 1 puff IH QID 06/25/17 06/25/17 06/25/17 History [Combivent Respimat] Ipratropium/Albuterol Sulfate 1 ampul IH QID 06/25/17 06/25/17 06/25/17 History [DUONEB *Not for PRN Use*] Losartan/Hydrochlorothiazide 1 each PO QDAY 06/25/17 06/25/17 06/25/17 History [Losartan-Hctz 100-25 mg Tab] Megestrol [Megace] 5 ml PO QAM 06/25/17 06/25/17 06/25/17 History metFORMIN [Glucophage] 500 mg PO BID 06/25/17 06/25/17 06/25/17 History Review of Systems All systems: negative Constitutional: no weight loss, no weight gain, no fever, no chills Ears, nose, mouth and throat: no dysphagia, no hoarseness, no sore throat, no swelling in mouth Cardiovascular: rapid/irregular heart beat, shortness of breath, no chest pain, no orthopnea, no palpitations, no edema, no syncope, no lightheadedness Respiratory: cough, cough with sputum, shortness of breath, dyspnea on exertion , congestion, wheezing Gastrointestinal: no abdominal pain, no nausea, no vomiting, no diarrhea Genitourinary Male: no dysuria, no hematuria, no flank pain, no discharge, no urinary frequency Rectal: no pain Musculoskeletal: no neck stiffness, no neck pain, no shooting arm pain, no arm numbness/tingling, no low back pain Integumentary: no rash, no pruritis, no redness, no sores Neurological: no head injury, no seizures, no syncope Psychiatric: no anxiety, no change in appetite Endocrine: no cold intolerance, no heat intolerance, no polyphagia, no excessive thirst Hematologic/Lymphatic: no easy bruising, no easy bleeding Allergic/Immunologic: wheezing, no urticaria, no allergic rhinitis Exam - Constitutional Vitals: Temp Pulse Resp BP Pulse Ox 99.3 F 75 22 117/64 88 06/25/17 20:12 06/25/17 20:45 06/25/17 20:12 06/25/17 20:12 06/25/17 18:07 General appearance: Present: severe distress, well-nourished - EENT Eyes: Present: PERRL ENT: hearing intact, clear oral mucosa - Neck Neck: Present: supple, normal ROM - Respiratory Respiratory effort: normal Respiratory: bilateral: diminished, rales, rhonchi - Cardiovascular Heart rate: 90 Rhythm: regular Heart Sounds: Present: S1 & S2. Absent: rub, click - Extremities Extremities: no ischemia, pulses intact, pulses symmetrical, No edema Peripheral Pulses: within normal limits - Abdominal General gastrointestinal: Present: soft, non-tender, non-distended, normal bowel sounds Male genitourinary: Present: normal - Rectal Rectal Exam: deferred - Integumentary Integumentary: Present: clear, warm, dry - Musculoskeletal Musculoskeletal: gait normal, strength equal bilaterally - Psychiatric Psychiatric: appropriate mood/affect, intact judgment & insight, cooperative - Neurologic Neurologic: CNII-XII intact, moves all extremities - Allied Health Allied health notes reviewed: nursing, case management Results - Labs CBC & Chem 7: 06/26/17 03:58 06/26/17 03:58 Labs: Laboratory Last Values WBC 4.0 K/mm3 (4.5-11.0) L 06/25/17 11:36 RBC 3.23 M/mm3 (3.65-5.03) L 06/25/17 11:36 Hgb 10.2 gm/dl (11.8-15.2) L 06/25/17 11:36 Hct 32.1 % (35.5-45.6) L 06/25/17 11:36 MCV 99 fl (84-94) H 06/25/17 11:36 MCH 31 pg (28-32) 06/25/17 11:36 MCHC 32 % (32-34) 06/25/17 11:36 RDW 16.4 % (13.2-15.2) H 06/25/17 11:36 Plt Count 264 K/mm3 (140-440) 06/25/17 11:36 Lymph % (Auto) 16.7 % (13.4-35.0) 06/25/17 11:36 [place] % (Auto) 10.4 % (0.0-7.3) H 06/25/17 11:36 Eos % (Auto) 0.6 % (0.0-4.3) 06/25/17 11:36 Baso % (Auto) 1.1 % (0.0-1.8) 06/25/17 11:36 Lymph # 0.7 K/mm3 (1.2-5.4) L 06/25/17 11:36 [place] # 0.4 K/mm3 (0.0-0.8) 06/25/17 11:36 Eos # 0.0 K/mm3 (0.0-0.4) 06/25/17 11:36 Baso # 0.0 K/mm3 (0.0-0.1) 06/25/17 11:36 Seg Neutrophils % 71.2 % (40.0-70.0) H 06/25/17 11:36 Seg Neutrophils # 2.9 K/mm3 (1.8-7.7) 06/25/17 11:36 PT 14.6 Sec. (12.2-14.9) 06/25/17 11:36 INR 1.08 (0.87-1.13) 06/25/17 11:36 APTT 32.6 Sec. (24.2-36.6) 06/25/17 11:36 POC ABG pH 7.394 (7.35-7.45) 06/25/17 14:43 POC ABG pCO2 47.8 (35-45) H 06/25/17 14:43 POC ABG pO2 53 (80-105) L 06/25/17 14:43 POC ABG HCO3 29.2 06/25/17 14:43 POC ABG Total CO2 31 06/25/17 14:43 POC ABG O2 Sat 87 06/25/17 14:43 POC ABG Base Excess 4 06/25/17 14:43 FiO2 30 % 06/25/17 14:43 Sodium 144 mmol/L (137-145) 06/25/17 11:36 Potassium 3.8 mmol/L (3.6-5.0) 06/25/17 11:36 Chloride 102.9 mmol/L (98-107) 06/25/17 11:36 Carbon Dioxide 29 mmol/L (22-30) 06/25/17 11:36 Anion Gap 16 mmol/L 06/25/17 11:36 BUN 21 mg/dL (9-20) H 06/25/17 11:36 Creatinine 1.7 mg/dL (0.8-1.5) H 06/25/17 11:36 Estimated GFR 47 ml/min 06/25/17 11:36 BUN/Creatinine Ratio 12 % 06/25/17 11:36 Glucose 146 mg/dL (75-100) H 06/25/17 11:36 POC Glucose 332 (70-105) H 06/25/17 21:07 Lactic Acid 3.80 mmol/L (0.7-2.0) H* 06/25/17 11:36 Calcium 8.6 mg/dL (8.4-10.2) 06/25/17 11:36 Magnesium 2.10 mg/dL (1.7-2.3) 06/25/17 11:36 Total Bilirubin 0.40 mg/dL (0.1-1.2) 06/25/17 11:36 AST 20 units/L (5-40) 06/25/17 11:36 ALT 21 units/L (7-56) 06/25/17 11:36 Alkaline Phosphatase 52 units/L (35-129) 06/25/17 11:36 Total Creatine Kinase 91 units/L (55-170) 06/25/17 11:36 CK-MB (CK-2) 2.0 ng/mL (0.0-4.0) 06/25/17 11:36 CK-MB (CK-2) Rel Index 2.1 (0-4) 06/25/17 11:36 Troponin T 0.013 ng/mL (0.00-0.029) 06/25/17 11:36 Total Protein 6.5 g/dL (6.3-8.2) 06/25/17 11:36 Albumin 3.7 g/dL (3.9-5) L 06/25/17 11:36 Albumin/Globulin Ratio 1.3 % 06/25/17 11:36 Urine Color Yellow (Yellow) 06/25/17 13:09 Urine Turbidity Clear (Clear) 06/25/17 13:09 Urine pH 5.0 (5.0-7.0) 06/25/17 13:09 Ur Specific [place] 1.018 (1.003-1.030) 06/25/17 13:09 Urine Protein 30 mg/dl mg/dL (Negative) 06/25/17 13:09 Urine Glucose (UA) Neg mg/dL (Negative) 06/25/17 13:09 Urine Ketones Neg mg/dL (Negative) 06/25/17 13:09 Urine Blood Neg (Negative) 06/25/17 13:09 Urine Nitrite Neg (Negative) 06/25/17 13:09 Urine Bilirubin Neg (Negative) 06/25/17 13:09 Urine Urobilinogen < 2.0 mg/dL (<2.0) 06/25/17 13:09 Ur Leukocyte Esterase Neg (Negative) 06/25/17 13:09 Urine WBC (Auto) 1.0 /HPF (0.0-6.0) 06/25/17 13:09 Urine RBC (Auto) 3.0 /HPF (0.0-6.0) 06/25/17 13:09 U Epithel Cells (Auto) < 1.0 /HPF (0-13.0) 06/25/17 13:09 Urine Mucus Few /HPF 06/25/17 13:09 - Imaging and Cardiology EKG: report reviewed Chest x-ray: report reviewed (bilateral lower lobe infiltrates -Aspiration??) Assessment and Plan Advance Directives: Yes (Full code) VTE prophylaxis?: Chemical Plan of care discussed with patient/family: Yes - Patient Problems (1) Acute respiratory failure Current Visit: No Status: Acute Qualifiers: Respiratory failure complication: hypoxia Qualified Code(s): J96.01 - Acute respiratory failure with hypoxia Plan to address problem: Bipap and Intubation if necessary (2) COPD with acute exacerbation Current Visit: Yes Status: Acute Plan to address problem: IV Solumedrol Duonebs RTC and PRN and IV Abx Will add Zosyn b/c of possible aspiration ID consult Also speech eval to r/o dysphagia (3) CHANNING (acute kidney injury) Current Visit: No Status: Acute Plan to address problem: IV fluids Dr Menjivar consulted (4) Aspiration pneumonia Current Visit: No Status: Acute Qualifiers: Aspiration pneumonia type: unspecified Laterality: bilateral Lung location: unspecified part of lung Qualified Code(s): J69.0 - Pneumonitis due to inhalation of food and vomit Plan to address problem: Speech eval (5) Diabetes Current Visit: No Status: Chronic Qualifiers: Diabetes mellitus type: type 2 Plan to address problem: coverage (6) HTN (hypertension) Current Visit: No Status: Chronic Qualifiers: Hypertension type: essential hypertension Qualified Code(s): I10 - Essential (primary) hypertension Plan to address problem: Cont antihypertensives (7) DVT prophylaxis Current Visit: No Status: Acute Plan to address problem: Heparin
[2017-06-25] MEDS ORDERED: TYLENOL PO PRN (21:17)
[2017-06-25] MEDS ORDERED: ZOFRAN IV PRN (21:17)
[2017-06-25] MEDS ORDERED: REGLAN IV PRN ×2 (21:21→21:40)
[2017-06-25] MEDS ORDERED: MILK OF MAGNESIA PO PRN (21:21)
[2017-06-25] MEDS ORDERED: PERCOCET 5/325 PO PRN (21:21)
[2017-06-25] MEDS ORDERED: MORPHINE IV PRN (21:21)
[2017-06-25] MEDS ORDERED: DUONEB *Not for PRN Use IH (21:23)
[2017-06-25] MEDS ORDERED: PROVENTIL IH PRN (21:53)
[2017-06-25] MEDS ORDERED: NON-FORMULARY (Ipratropium/Albuterol Sulfate [Combivent Respimat] 1 PUFF) IH SCH (22:00)
[2017-06-25] MEDS ORDERED: NACL 0.9% 1000 ML 1,000 ML IV SCH (22:00)
[2017-06-25] MEDS ORDERED: NON-FORMULARY (Ranitidine Hcl [Zantac 300 Mg Tab] 300 MG) PO SCH (22:00)
[2017-06-25] MEDS ORDERED: LEVAQUIN 750MG/150ML 750 MG/150 ML BAG IV SCH (22:00)
[2017-06-25] MEDS ORDERED: NON-FORMULARY (Insulin Glargine,Hum.Rec.Anlog [Lantus Solostar] 10 UNITS) SUB-Q SCH (22:00)
[2017-06-25] MEDS: LEVAQUIN 750MG/150ML 750 MG/150 ML BAG IV SCH (22:24)
[2017-06-25] MEDS: SODIUM CHLORIDE FLUSH SYRINGE 10 ML IV SCH (22:26)
[2017-06-25] MEDS: NORVASC PO SCH (22:27)
[2017-06-25] MEDS: DUONEB *Not for PRN Use IH SCH (22:27)
[2017-06-25] MEDS: LOPRESSOR PO SCH (22:28)
[2017-06-25] MEDS ORDERED: NOVOLOG SUB-Q SCH (23:00)
[2017-06-25] MEDS ORDERED: PEPCID PO SCH (23:00)
[2017-06-25] MEDS: AMBIEN PO PRN (23:07)
[2017-06-25] MEDS: LANTUS SUB-Q SCH (23:08)
[2017-06-25] MEDS: SODIUM CHLORIDE FLUSH SYRINGE 10 ML IV PRN (23:10)
[2017-06-25] MEDS: PEPCID PO SCH (23:10)
[2017-06-26] MEDS: HumaLOG SUB-Q SCH ×5 (01:27→22:37)
[2017-06-26 04:45] LABS: Basophils % (Auto) 0.1 % (0.0-1.8); Eosinophils % (Auto) 0.1 % (0.0-4.3); Hematocrit 30.8 % (35.5-45.6); Lymphocytes # (Auto) 0.2 K/mm3 (1.2-5.4); Mean Corpuscular HGB Conc 33 % (32-34); Mean Corpuscular Hemoglobin 32 pg (28-32); Mean Corpuscular Volume 97 fl (84-94); Monocytes # (Auto) 0.1 K/mm3 (0.0-0.8); Monocytes % (Auto) 2.1 % (0.0-7.3); Platelet Count 255 K/mm3 (140-440); Red Blood Count 3.17 M/mm3 (3.65-5.03); Red Cell Distribution Width 16.3 % (13.2-15.2)
[2017-06-26 04:55] LABS: Albumin 3.4 g/dL (3.9-5); Calcium 8.1 mg/dL (8.4-10.2)
[2017-06-26] MEDS: SODIUM CHLORIDE FLUSH SYRINGE 10 ML IV PRN (06:05)
[2017-06-26] MEDS: DUONEB *Not for PRN Use IH SCH ×4 (07:45→20:41)
[2017-06-26] MEDS ORDERED: ZOSYN/NS 3.375GM/50ML 3.375 GM/50 ML BAG IV SCH (08:00)
--- NOTE | 2017-06-26 08:23 | Consultation ---
History of Present Illness - Reason for Consult Consult date: 06/26/17 acute renal failure, chronic renal failure - History of Present Illness The patient is a 81 y/o AAM well known to our service with history significant for DM type 2, HTN, COPD on home O2, CKD stage 3, proteinuria and h/o pneumonia was admitted with SOB. Patient was confused to provide any history at this time. The reported that his O2 sats were around 59% at home. On the day of admission she was not able to record the saturation. His pulseox was 64% on arrival. The patient reports being weak. He has also lost weight over the past few months due to poor PO intake. Patient is followed by our service for CKD stage 3 and proteinuria. Past History Past Medical History: diabetes, hypertension, other (COPD on home O2) Medications and Allergies Allergies Allergy/AdvReac Type Severity Reaction Status Date / Time No Known Allergies Allergy Verified 05/08/17 13:24 Home Medications Medication Instructions Recorded Confirmed Last Taken Type Metoprolol [Lopressor TAB] 50 mg PO BID 12/03/16 06/25/17 06/25/17 History Ranitidine HCl [Zantac 300 MG TAB] 300 mg PO BID 12/03/16 06/25/17 06/25/17 History Amlodipine Besylate [Norvasc] 10 mg PO QDAY 06/25/17 06/25/17 06/25/17 History Insulin Glargine,Hum.rec.anlog 10 units SUB-Q HS 06/25/17 06/25/17 06/24/17 History [Lantus Solostar] Ipratropium/Albuterol Sulfate 1 puff IH QID 06/25/17 06/25/17 06/25/17 History [Combivent Respimat] Ipratropium/Albuterol Sulfate 1 ampul IH QID 06/25/17 06/25/17 06/25/17 History [DUONEB *Not for PRN Use*] Losartan/Hydrochlorothiazide 1 each PO QDAY 06/25/17 06/25/17 06/25/17 History [Losartan-Hctz 100-25 mg Tab] Megestrol [Megace] 5 ml PO QAM 06/25/17 06/25/17 06/25/17 History metFORMIN [Glucophage] 500 mg PO BID 06/25/17 06/25/17 06/25/17 History Active Meds: Active Medications Acetaminophen (Tylenol) 650 mg PO Q4H PRN PRN Reason: Pain MILD(1-3)/Fever >100.5/[place] Albuterol (Proventil) 2.5 mg IH Q4HRT PRN PRN Reason: Shortness Of Breath Albuterol/Ipratropium (Duoneb *Not For Prn Use*) 1 ampul IH QID [facility] Last Admin: 06/26/17 07:45 Dose: 1 ampul Amlodipine Besylate (Norvasc) 10 mg PO QDAY [facility] Last Admin: 06/25/17 22:27 Dose: 10 mg Famotidine (Pepcid) 20 mg PO BID [facility] Last Admin: 06/25/17 23:10 Dose: 20 mg Hydrochlorothiazide (Hctz) 25 mg PO QDAY [facility] Sodium Chloride (Nacl 0.9% 1000 Ml) 1,000 mls @ 100 mls/hr IV DIRECT ROSELINE Stop: 06/26/17 10:00 Last Admin: 06/25/17 22:24 Dose: 100 mls/hr Levofloxacin/Dextrose (Levaquin 750mg/150ml) 750 mg in 150 mls @ 100 mls/hr IV Q48HR@2200 [facility] Last Admin: 06/25/17 22:24 Dose: 100 mls/hr Piperacillin Sod/Tazobactam Sod (Zosyn/Ns 3.375gm/50ml) 3.375 gm in 50 mls @ 100 mls/hr IV Q8HR [facility]; Protocol Insulin Glargine (Lantus) 10 units SUB-Q QHS [facility] Last Admin: 06/25/17 23:08 Dose: 10 units Insulin Human Lispro (Humalog) 0 unit SUB-Q ACHS [facility]; Protocol Last Admin: 06/26/17 01:27 Dose: Not Given Losartan Potassium (Cozaar) 100 mg PO QDAY [facility] Magnesium Hydroxide (Milk Of Magnesia) 30 ml PO Q4H PRN PRN Reason: Constipation Megestrol Acetate (Megace) 200 mg PO QAM [facility] Metformin HCl (Glucophage) 500 mg PO BID [facility] Methylprednisolone Sodium Succinate (Solu-Medrol) 80 mg IV Q8HR [facility] Last Admin: 06/26/17 06:05 Dose: 80 mg Metoclopramide HCl (Reglan) 5 mg IV Q6H PRN PRN Reason: NAUSEA AND VOMITING Metoprolol Tartrate (Lopressor) 50 mg PO BID [facility] Last Admin: 06/25/17 22:28 Dose: Not Given Morphine Sulfate (Morphine) 4 mg IV Q4H PRN PRN Reason: Pain , Severe (7-10) Ondansetron HCl (Zofran) 4 mg IV Q8H PRN PRN Reason: Nausea And Vomiting Oxycodone/Acetaminophen (Percocet 5/325) 1 tab PO Q6H PRN PRN Reason: Pain, Moderate (4-6) Sodium Chloride (Sodium Chloride Flush Syringe 10 Ml) 10 ml IV BID [facility] Last Admin: 06/25/17 22:26 Dose: 10 ml Sodium Chloride (Sodium Chloride Flush Syringe 10 Ml) 10 ml IV PRN PRN PRN Reason: LINE FLUSH Last Admin: 06/26/17 06:05 Dose: 10 ml Zolpidem Tartrate (Ambien) 5 mg PO QHS PRN PRN Reason: Insomnia Last Admin: 06/25/17 23:07 Dose: 5 mg Review of Systems ROS unobtainable: due to mental status Exam - Vital Signs Vital signs: Vital Signs Pulse Resp BP Pulse Ox 79 16 115/70 64 L 06/25/17 11:00 06/25/17 11:00 06/25/17 11:00 06/25/17 11:00 - General Appearance General appearance: well-developed, appears stated age, frail, other (tachypneic , emaciated) EENT: ATNC, PERRL Neck: Present: neck supple, trachea midline Respiratory: Clear to Ascultation Heart: regular, S1S2, no murmurs Gastrointestinal: Present: normoactive bowel sounds. Absent: tenderness Integumentary: no rash, warm and dry Neurologic: no focal deficit, no asterixis, confused, disoriented Musculoskeletal: Present: other (no edema) Psychiatric: mood/affect appropriate, cooperative Results - Lab Results 06/26/17 03:58 06/26/17 03:58 Most recent lab results Calcium 8.1 mg/dL (8.4-10.2) L 06/26/17 03:58 Magnesium 2.10 mg/dL (1.7-2.3) 06/25/17 11:36 Assessment and Plan 1. Acute kidney injury: Hemodynamic CHANNING superimposed on CKD stage 3 in the setting of volume depletion. Continue IV fluids. Hold HCTZ and Losartan for now. Monitor renal function. 2. CKD stage 3. 3. Acute on chronic hypoxic respiratory failure. 4. Bilateral PNA.
[2017-06-26] MEDS ORDERED: HumaLOG SUB-Q ONE ×4 (10:00)
[2017-06-26] MEDS ORDERED: COZAAR PO SCH (10:00)
[2017-06-26] MEDS ORDERED: HCTZ PO SCH (10:00)
[2017-06-26] MEDS: MEGACE PO SCH (10:54)
[2017-06-26] MEDS: NORVASC PO SCH (10:57)
[2017-06-26] MEDS: LOPRESSOR PO SCH ×2 (10:58→22:32)
[2017-06-26] MEDS: PEPCID PO SCH ×2 (10:58→13:25)
--- NOTE | 2017-06-26 10:59 | Progress Note ---
Assessment and Plan Assessment and plan: Acute respiratory failure Bipap as clinically indicated and Intubation if necessary COPD with acute exacerbation IV Solumedrol Duonebs RTC and PRN and IV Abx Cont. Elias GORDILLO consulted Also speech eval to r/o dysphagia CHANNING (acute kidney injury) IV fluids Dr Menjivar consulted Aspiration pneumonia Speech eval Diabetes mellitus Type 2 SSRI coverage and accuchecks HTN (hypertension) Cont antihypertensives DVT prophylaxis cont. heparin History Interval history: Pt with labored respirations and accessory muscle use. He denies chest pain. Hospitalist Physical - Constitutional Vitals: Temp Pulse Resp BP Pulse Ox 98.5 F 84 18 126/67 94 06/26/17 07:17 06/26/17 07:56 06/26/17 07:56 06/26/17 07:17 06/26/17 07:49 General appearance: Present: severe distress, well-nourished - EENT Eyes: Present: PERRL, EOM intact ENT: hearing intact, clear oral mucosa, dentition normal - Neck Neck: Present: supple, normal ROM - Respiratory Respiratory effort: normal Respiratory: bilateral: diminished, wheezing - Cardiovascular Rhythm: regular Heart Sounds: Present: S1 & S2. Absent: gallop, rub - Extremities Extremities: no ischemia, No edema, Full ROM - Abdominal General gastrointestinal: soft, non-tender, non-distended, normal bowel sounds - Integumentary Integumentary: Present: clear, warm, dry - Neurologic Neurologic: CNII-XII intact, moves all extremities Results - Labs CBC & Chem 7: 06/26/17 03:58 06/26/17 03:58 Labs: Laboratory Last Values WBC 2.4 K/mm3 (4.5-11.0) L 06/26/17 03:58 RBC 3.17 M/mm3 (3.65-5.03) L 06/26/17 03:58 Hgb 10.0 gm/dl (11.8-15.2) L 06/26/17 03:58 Hct 30.8 % (35.5-45.6) L 06/26/17 03:58 MCV 97 fl (84-94) H 06/26/17 03:58 MCH 32 pg (28-32) 06/26/17 03:58 MCHC 33 % (32-34) 06/26/17 03:58 RDW 16.3 % (13.2-15.2) H 06/26/17 03:58 Plt Count 255 K/mm3 (140-440) 06/26/17 03:58 Lymph % (Auto) 8.0 % (13.4-35.0) L 06/26/17 03:58 [place] % (Auto) 2.1 % (0.0-7.3) 06/26/17 03:58 Eos % (Auto) 0.1 % (0.0-4.3) 06/26/17 03:58 Baso % (Auto) 0.1 % (0.0-1.8) 06/26/17 03:58 Lymph # 0.2 K/mm3 (1.2-5.4) L 06/26/17 03:58 [place] # 0.1 K/mm3 (0.0-0.8) 06/26/17 03:58 Eos # 0.0 K/mm3 (0.0-0.4) 06/26/17 03:58 Baso # 0.0 K/mm3 (0.0-0.1) 06/26/17 03:58 Seg Neutrophils % 89.7 % (40.0-70.0) H 06/26/17 03:58 Seg Neutrophils # 2.2 K/mm3 (1.8-7.7) 06/26/17 03:58 PT 14.6 Sec. (12.2-14.9) 06/25/17 11:36 INR 1.08 (0.87-1.13) 06/25/17 11:36 APTT 32.6 Sec. (24.2-36.6) 06/25/17 11:36 POC ABG pH 7.394 (7.35-7.45) 06/25/17 14:43 POC ABG pCO2 47.8 (35-45) H 06/25/17 14:43 POC ABG pO2 53 (80-105) L 06/25/17 14:43 POC ABG HCO3 29.2 06/25/17 14:43 POC ABG Total CO2 31 06/25/17 14:43 POC ABG O2 Sat 87 06/25/17 14:43 POC ABG Base Excess 4 06/25/17 14:43 FiO2 30 % 06/25/17 14:43 Sodium 141 mmol/L (137-145) 06/26/17 03:58 Potassium 4.9 mmol/L (3.6-5.0) D 06/26/17 03:58 Chloride 101.8 mmol/L (98-107) 06/26/17 03:58 Carbon Dioxide 25 mmol/L (22-30) 06/26/17 03:58 Anion Gap 19 mmol/L 06/26/17 03:58 BUN 27 mg/dL (9-20) H 06/26/17 03:58 Creatinine 1.6 mg/dL (0.8-1.5) H 06/26/17 03:58 Estimated GFR 50 ml/min 06/26/17 03:58 BUN/Creatinine Ratio 17 % 06/26/17 03:58 Glucose 210 mg/dL (75-100) H 06/26/17 03:58 POC Glucose 189 (70-105) H 06/26/17 07:24 Hemoglobin A1c 5.1 % (4-6) 06/25/17 11:36 Lactic Acid 3.80 mmol/L (0.7-2.0) H* 06/25/17 11:36 Calcium 8.1 mg/dL (8.4-10.2) L 06/26/17 03:58 Magnesium 2.10 mg/dL (1.7-2.3) 06/25/17 11:36 Total Bilirubin 0.20 mg/dL (0.1-1.2) 06/26/17 03:58 AST 14 units/L (5-40) 06/26/17 03:58 ALT 17 units/L (7-56) 06/26/17 03:58 Alkaline Phosphatase 49 units/L (35-129) 06/26/17 03:58 Total Creatine Kinase 91 units/L (55-170) 06/25/17 11:36 CK-MB (CK-2) 2.0 ng/mL (0.0-4.0) 06/25/17 11:36 CK-MB (CK-2) Rel Index 2.1 (0-4) 06/25/17 11:36 Troponin T 0.013 ng/mL (0.00-0.029) 06/25/17 11:36 Total Protein 6.2 g/dL (6.3-8.2) L 06/26/17 03:58 Albumin 3.4 g/dL (3.9-5) L 06/26/17 03:58 Albumin/Globulin Ratio 1.2 % 06/26/17 03:58 Urine Color Yellow (Yellow) 06/25/17 13:09 Urine Turbidity Clear (Clear) 06/25/17 13:09 Urine pH 5.0 (5.0-7.0) 06/25/17 13:09 Ur Specific [place] 1.018 (1.003-1.030) 06/25/17 13:09 Urine Protein 30 mg/dl mg/dL (Negative) 06/25/17 13:09 Urine Glucose (UA) Neg mg/dL (Negative) 06/25/17 13:09 Urine Ketones Neg mg/dL (Negative) 06/25/17 13:09 Urine Blood Neg (Negative) 06/25/17 13:09 Urine Nitrite Neg (Negative) 06/25/17 13:09 Urine Bilirubin Neg (Negative) 06/25/17 13:09 Urine Urobilinogen < 2.0 mg/dL (<2.0) 06/25/17 13:09 Ur Leukocyte Esterase Neg (Negative) 06/25/17 13:09 Urine WBC (Auto) 1.0 /HPF (0.0-6.0) 06/25/17 13:09 Urine RBC (Auto) 3.0 /HPF (0.0-6.0) 06/25/17 13:09 U Epithel Cells (Auto) < 1.0 /HPF (0-13.0) 06/25/17 13:09 Urine Mucus Few /HPF 06/25/17 13:09
[2017-06-26] MEDS: SODIUM CHLORIDE FLUSH SYRINGE 10 ML IV SCH (11:04)
--- NOTE | 2017-06-26 11:11 | Consultation ---
History of Present Illness - Reason for Consult Consult date: 06/26/17 asp pna Requesting physician: DAMIEN VALLECILLO - History of Present Illness 81 years old male with history of double pneumonia in 2017 and COPD; admitted on due to SOB. he has been complaining of 3 weeks of white sputum productive cough. His O2 sat dropped to 59% at home. He is a former smoker. Denies any recent sick contact. Denies chest pain, fever, chills, N/V/D, abd pain. In the ED, temp 97.9, HR 79, R 16, O2 sat 69%. WBC 4. Lactate 3.8. CXR showed romario pneumonia Microbiology: none Current Antimicrobials: Zosyn Levaquin Previous Antimicrobials: Past History Past Medical History: other (COPD, previous pna) Past Surgical History: No surgical history Social history: no significant social history, other (former smoker) Family history: no significant family history Medications and Allergies Allergies Allergy/AdvReac Type Severity Reaction Status Date / Time No Known Allergies Allergy Verified 05/08/17 13:24 Home Medications Medication Instructions Recorded Confirmed Last Taken Type Metoprolol [Lopressor TAB] 50 mg PO BID 12/03/16 06/25/17 06/25/17 History Ranitidine HCl [Zantac 300 MG TAB] 300 mg PO BID 12/03/16 06/25/17 06/25/17 History Amlodipine Besylate [Norvasc] 10 mg PO QDAY 06/25/17 06/25/17 06/25/17 History Insulin Glargine,Hum.rec.anlog 10 units SUB-Q HS 06/25/17 06/25/17 06/24/17 History [Lantus Solostar] Ipratropium/Albuterol Sulfate 1 puff IH QID 06/25/17 06/25/17 06/25/17 History [Combivent Respimat] Ipratropium/Albuterol Sulfate 1 ampul IH QID 06/25/17 06/25/17 06/25/17 History [DUONEB *Not for PRN Use*] Losartan/Hydrochlorothiazide 1 each PO QDAY 06/25/17 06/25/17 06/25/17 History [Losartan-Hctz 100-25 mg Tab] Megestrol [Megace] 5 ml PO QAM 0306/25/17 06/25/17 History metFORMIN [Glucophage] 500 mg PO BID 06/25/17 06/25/17 06/25/17 History Active Meds: Active Medications Acetaminophen (Tylenol) 650 mg PO Q4H PRN PRN Reason: Pain MILD(1-3)/Fever >100.5/[place]O Albuterol (Proventil) 2.5 mg IH Q4HRT PRN PRN Reason: Shortness Of Breath Albuterol/Ipratropium (Duoneb *Not For Prn Use*) 1 ampul IH QID [facility] Last Admin: 06/26/17 07:45 Dose: 1 ampul Amlodipine Besylate (Norvasc) 10 mg PO QDAY [facility] Last Admin: 06/26/17 10:57 Dose: 10 mg Famotidine (Pepcid) 20 mg PO DAILY [facility] Last Admin: 06/26/17 10:58 Dose: 20 mg Hydrochlorothiazide (Hctz) 25 mg PO QDAY [facility] Last Admin: 06/26/17 10:57 Dose: 25 mg Levofloxacin/Dextrose (Levaquin 750mg/150ml) 750 mg in 150 mls @ 100 mls/hr IV Q48HR@2200 [facility] Last Admin: 06/25/17 22:24 Dose: 100 mls/hr Piperacillin Sod/Tazobactam Sod (Zosyn/Ns 3.375gm/50ml) 3.375 gm in 50 mls @ 100 mls/hr IV Q8HR [facility]; Protocol Last Admin: 06/26/17 08:48 Dose: 100 mls/hr Insulin Glargine (Lantus) 10 units SUB-Q QHS [facility] Last Admin: 06/25/17 23:08 Dose: 10 units Insulin Human Lispro (Humalog) 0 unit SUB-Q ACHS [facility]; Protocol Last Admin: 06/26/17 08:31 Dose: 2 unit Losartan Potassium (Cozaar) 100 mg PO QDAY [facility] Last Admin: 06/26/17 10:56 Dose: 100 mg Magnesium Hydroxide (Milk Of Magnesia) 30 ml PO Q4H PRN PRN Reason: Constipation Megestrol Acetate (Megace) 200 mg PO QAM [facility] Last Admin: 06/26/17 10:54 Dose: 200 mg Metformin HCl (Glucophage) 500 mg PO BID [facility] Methylprednisolone Sodium Succinate (Solu-Medrol) 80 mg IV Q8HR [facility] Last Admin: 06/26/17 06:05 Dose: 80 mg Metoclopramide HCl (Reglan) 5 mg IV Q6H PRN PRN Reason: NAUSEA AND VOMITING Metoprolol Tartrate (Lopressor) 50 mg PO BID [facility] Last Admin: 06/26/17 10:58 Dose: 50 mg Morphine Sulfate (Morphine) 4 mg IV Q4H PRN PRN Reason: Pain , Severe (7-10) Ondansetron HCl (Zofran) 4 mg IV Q8H PRN PRN Reason: Nausea And Vomiting Oxycodone/Acetaminophen (Percocet 5/325) 1 tab PO Q6H PRN PRN Reason: Pain, Moderate (4-6) Sodium Chloride (Sodium Chloride Flush Syringe 10 Ml) 10 ml IV BID [facility] Last Admin: 06/26/17 11:04 Dose: 10 ml Sodium Chloride (Sodium Chloride Flush Syringe 10 Ml) 10 ml IV PRN PRN PRN Reason: LINE FLUSH Last Admin: 06/26/17 06:05 Dose: 10 ml Zolpidem Tartrate (Ambien) 5 mg PO QHS PRN PRN Reason: Insomnia Last Admin: 06/25/17 23:07 Dose: 5 mg Review of Systems All systems: negative (rest negative) Physical Examination - Physical Exam Narrative exam: General appearance: Alert in NAD, conversant Eyes: anicteric sclerae, moist conjunctivae; no lid-lag; PERRLA HENT: Atraumatic; oropharynx clear Neck: Trachea midline; supple, no thyromegaly or lymphadenopathy Lungs: distant and romario rhinchi CV: RRR, no murmurs Abdomen: Soft, non-tender; no masses or hepatosplenomegaly Extremities: No peripheral edema or extremity lymphadenopathy Skin: Normal temperature, turgor and texture; no rash, ulcers or subcutaneous nodules Psych: Appropriate affect, alert and oriented to person, place and time. Neuro: alert and oriented x 3. Moving all extermities Lines: No CVL / PICC - Constitutional Vitals: Vital Signs Temp Pulse Resp BP Pulse Ox 98.5 F 83 18 119/65 94 06/26/17 07:17 06/26/17 10:58 06/26/17 07:56 06/26/17 10:58 06/26/17 07:49 Temperature -Last 24 Hours Temperature 98.5 F Temperature 99.0 F Temperature 99.3 F Temperature 98.5 F Temperature 98.8 F Temperature 98.1 F Results - Labs CBC & Chem 7: 06/26/17 03:58 06/26/17 03:58 Labs: Abnormal lab results 06/25/17 06/25/17 06/25/17 Range/Units 11:36 11:36 11:36 WBC 4.0 L (4.5-11.0) K/mm3 RBC 3.23 L (3.65-5.03) M/mm3 Hgb 10.2 L (11.8-15.2) gm/dl Hct 32.1 L (35.5-45.6) % MCV 99 H (84-94) fl RDW 16.4 H (13.2-15.2) % Lymph % (Auto) (13.4-35.0) % [place] % (Auto) 10.4 H (0.0-7.3) % Lymph # 0.7 L (1.2-5.4) K/mm3 Seg Neutrophils % 71.2 H (40.0-70.0) % POC ABG pCO2 (35-45) POC ABG pO2 (80-105) BUN 21 H (9-20) mg/dL Creatinine 1.7 H (0.8-1.5) mg/dL Glucose 146 H (75-100) mg/dL POC Glucose (70-105) Lactic Acid 3.80 H* (0.7-2.0) mmol/L Calcium (8.4-10.2) mg/dL Total Protein (6.3-8.2) g/dL Albumin 3.7 L (3.9-5) g/dL 06/25/17 06/25/17 06/25/17 Range/Units 14:43 17:08 21:07 WBC (4.5-11.0) K/mm3 RBC (3.65-5.03) M/mm3 Hgb (11.8-15.2) gm/dl Hct (35.5-45.6) % MCV (84-94) fl RDW (13.2-15.2) % Lymph % (Auto) (13.4-35.0) % [place] % (Auto) (0.0-7.3) % Lymph # (1.2-5.4) K/mm3 Seg Neutrophils % (40.0-70.0) % POC ABG pCO2 47.8 H (35-45) POC ABG pO2 53 L (80-105) BUN (9-20) mg/dL Creatinine (0.8-1.5) mg/dL Glucose (75-100) mg/dL POC Glucose 149 H 332 H (70-105) Lactic Acid (0.7-2.0) mmol/L Calcium (8.4-10.2) mg/dL Total Protein (6.3-8.2) g/dL Albumin (3.9-5) g/dL 06/26/17 06/26/17 06/26/17 Range/Units 03:58 03:58 07:24 WBC 2.4 L (4.5-11.0) K/mm3 RBC 3.17 L (3.65-5.03) M/mm3 Hgb 10.0 L (11.8-15.2) gm/dl Hct 30.8 L (35.5-45.6) % MCV 97 H (84-94) fl RDW 16.3 H (13.2-15.2) % Lymph % (Auto) 8.0 L (13.4-35.0) % [place] % (Auto) (0.0-7.3) % Lymph # 0.2 L (1.2-5.4) K/mm3 Seg Neutrophils % 89.7 H (40.0-70.0) % POC ABG pCO2 (35-45) POC ABG pO2 (80-105) BUN 27 H (9-20) mg/dL Creatinine 1.6 H (0.8-1.5) mg/dL Glucose 210 H (75-100) mg/dL POC Glucose 189 H (70-105) Lactic Acid (0.7-2.0) mmol/L Calcium 8.1 L (8.4-10.2) mg/dL Total Protein 6.2 L (6.3-8.2) g/dL Albumin 3.4 L (3.9-5) g/dL Assessment and Plan Assessment: 1) Acute Respiratory failure: from COPD exacerbation+/-pna 2) Bilateral pneumonia: Aspiration vs. CAP 3) COPD exacerbation 4) Anemia/neutropenia Plan: -obtain C-reactive protein (CRP) -stop zosyn -start unasyn -continue levaquin -check legionella and strep urine antigens -check HIV -swallowing eval I am rounding on Thursday Thank you for your consultation, will follow up with you. Yuli Durán MD Infectious Diseases Specialist [facility], [place] [facility] M [phone] O [phone]
[2017-06-26] MEDS: UNASYN/NS 3 GM/100 ML 3 GM/100 ML BAG IV SCH ×2 (13:24→18:58)
--- NOTE | 2017-06-26 18:09 | Consultation ---
History of Present Illness Consult date: 06/26/17 Reason for consult: COPD, hypoxemia, other ( shortness of breath.) History of present illness: PULMONARY CONSULTATION THIS IS 81 YEAR OLD MALE admitted for shortness of breath. Patient has history of COPD and On Home O2.Patient has history of bilateral pneumonia. Again todays chest xray showing bilateral pulmonary infiltrates.Patients O2 saturation dropped to 54%. Patient presently on 2 litres O2. O2 saturation 97%.Patient denies chest pain , cough or nasal congestion.Patient complaining weakness. Patient has history of smoking . Patient says stopped smoking 27 yers ago. Denies alcohol or drug abuse. 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 Denies allergies to the medications. Patient has history of hypertension,diabetes. Patient has history of GERD. Denies heart problems or thyroid problems.Patient has history of left Inguinal hernia repair and he has some kind of procedure done on Prostate. T Past History Past Medical History: COPD, diabetes, GERD, hypertension, other (COPD, previous pna) Past Surgical History: No surgical history Social history: no significant social history, other (former smoker) Family history: no significant family history Medications and Allergies Allergies Allergy/AdvReac Type Severity Reaction Status Date / Time No Known Allergies Allergy Verified 05/08/17 13:24 Home Medications Medication Instructions Recorded Confirmed Last Taken Type Metoprolol [Lopressor TAB] 50 mg PO BID 12/03/16 06/25/17 06/25/17 History Ranitidine HCl [Zantac 300 MG TAB] 300 mg PO BID 12/03/16 06/25/17 06/25/17 History Amlodipine Besylate [Norvasc] 10 mg PO QDAY 06/25/17 06/25/17 06/25/17 History Insulin Glargine,Hum.rec.anlog 10 units SUB-Q HS 06/25/17 06/25/17 06/24/17 History [Lantus Solostar] Ipratropium/Albuterol Sulfate 1 puff IH QID 06/25/17 06/25/17 06/25/17 History [Combivent Respimat] Ipratropium/Albuterol Sulfate 1 ampul IH QID 06/25/17 06/25/17 06/25/17 History [DUONEB *Not for PRN Use*] Losartan/Hydrochlorothiazide 1 each PO QDAY 06/25/17 06/25/17 06/25/17 History [Losartan-Hctz 100-25 mg Tab] Megestrol [Megace] 5 ml PO QAM 06/25/17 06/25/17 06/25/17 History metFORMIN [Glucophage] 500 mg PO BID 06/25/17 06/25/17 06/25/17 History Active Meds: Active Medications Acetaminophen (Tylenol) 650 mg PO Q4H PRN PRN Reason: Pain MILD(1-3)/Fever >100.5/[place] Albuterol (Proventil) 2.5 mg IH Q4HRT PRN PRN Reason: Shortness Of Breath Albuterol/Ipratropium (Duoneb *Not For Prn Use*) 1 ampul IH QID [facility] Last Admin: 06/26/17 13:02 Dose: 1 ampul Amlodipine Besylate (Norvasc) 10 mg PO QDAY [facility] Last Admin: 06/26/17 10:57 Dose: 10 mg Famotidine (Pepcid) 20 mg PO DAILY [facility] Last Admin: 06/26/17 10:58 Dose: 20 mg Hydrochlorothiazide (Hctz) 25 mg PO QDAY [facility] Last Admin: 06/26/17 10:57 Dose: 25 mg Levofloxacin/Dextrose (Levaquin 750mg/150ml) 750 mg in 150 mls @ 100 mls/hr IV Q48HR@2200 [facility] Last Admin: 06/25/17 22:24 Dose: 100 mls/hr Ampicillin Sodium/Sulbactam Sodium (Unasyn/Ns 3 Gm/100 Ml) 3 gm in 100 mls @ 100 mls/hr IV Q6HR [facility]; Protocol Last Admin: 06/26/17 13:24 Dose: 100 mls/hr Insulin Glargine (Lantus) 10 units SUB-Q QHS [facility] Last Admin: 06/25/17 23:08 Dose: 10 units Insulin Human Lispro (Humalog) 0 unit SUB-Q ACHS [facility]; Protocol Last Admin: 06/26/17 18:00 Dose: 2 unit Losartan Potassium (Cozaar) 100 mg PO QDAY [facility] Last Admin: 06/26/17 10:56 Dose: 100 mg Magnesium Hydroxide (Milk Of Magnesia) 30 ml PO Q4H PRN PRN Reason: Constipation Megestrol Acetate (Megace) 200 mg PO QAM [facility] Last Admin: 06/26/17 10:54 Dose: 200 mg Metformin HCl (Glucophage) 500 mg PO BIDDIAB [facility] Methylprednisolone Sodium Succinate (Solu-Medrol) 80 mg IV Q8HR [facility] Last Admin: 06/26/17 13:11 Dose: Not Given Metoclopramide HCl (Reglan) 5 mg IV Q6H PRN PRN Reason: NAUSEA AND VOMITING Metoprolol Tartrate (Lopressor) 50 mg PO BID [facility] Last Admin: 06/26/17 10:58 Dose: 50 mg Morphine Sulfate (Morphine) 4 mg IV Q4H PRN PRN Reason: Pain , Severe (7-10) Ondansetron HCl (Zofran) 4 mg IV Q8H PRN PRN Reason: Nausea And Vomiting Oxycodone/Acetaminophen (Percocet 5/325) 1 tab PO Q6H PRN PRN Reason: Pain, Moderate (4-6) Sodium Chloride (Sodium Chloride Flush Syringe 10 Ml) 10 ml IV BID [facility] Last Admin: 06/26/17 11:04 Dose: 10 ml Sodium Chloride (Sodium Chloride Flush Syringe 10 Ml) 10 ml IV PRN PRN PRN Reason: LINE FLUSH Last Admin: 06/26/17 06:05 Dose: 10 ml Zolpidem Tartrate (Ambien) 5 mg PO QHS PRN PRN Reason: Insomnia Last Admin: 06/25/17 23:07 Dose: 5 mg Review of Systems All systems: negative Physical Examination Vital signs: Vital Signs Pulse Resp BP Pulse Ox 79 16 115/70 64 L 06/25/17 11:00 06/25/17 11:00 06/25/17 11:00 06/25/17 11:00 General appearance: alert, other (Mild shortness of breath at rest.) Eyes: non-icteric ENT: oropharynx moist Neck: supple, no JVD Ascultation: Bilateral: diminished breath sounds (Prolonged expiratory phase.) Cardiovascular: regular rate and rhythm Gastrointestinal: normoactive bowel sounds, soft, non-tender Integumentary: normal Extremities: no cyanosis, no edema, other (Stasis dermatitis.) Musculoskeletal: no deformities Gait: poor gait normal mental status, non-focal exam, pupils equal and round, CN II-XII normal mood appropriate Results - Laboratory Findings CBC and BMP: 03/10/18 05:13 06/27/17 05:13 ABG POC ABG pH 7.394 (7.35-7.45) 06/25/17 14:43 POC ABG pCO2 47.8 (35-45) H 06/25/17 14:43 POC ABG pO2 53 (80-105) L 06/25/17 14:43 POC ABG HCO3 29.2 06/25/17 14:43 POC ABG Total CO2 31 06/25/17 14:43 POC ABG O2 Sat 87 06/25/17 14:43 PT/INR, D-dimer PT 14.6 Sec. (12.2-14.9) 06/25/17 11:36 INR 1.08 (0.87-1.13) 06/25/17 11:36 Abnormal lab findings: Abnormal Labs 06/25/17 06/25/17 06/25/17 11:36 11:36 11:36 WBC 4.0 L RBC 3.23 L Hgb 10.2 L Hct 32.1 L MCV 99 H RDW 16.4 H Lymph % (Auto) [place] % (Auto) 10.4 H Lymph # 0.7 L Seg Neutrophils % 71.2 H POC ABG pCO2 POC ABG pO2 BUN 21 H Creatinine 1.7 H Glucose 146 H POC Glucose Lactic Acid 3.80 H* Calcium Total Protein Albumin 3.7 L 06/25/17 06/25/17 06/25/17 14:43 17:08 21:07 WBC RBC Hgb Hct MCV RDW Lymph % (Auto) [place] % (Auto) Lymph # Seg Neutrophils % POC ABG pCO2 47.8 H POC ABG pO2 53 L BUN Creatinine Glucose POC Glucose 149 H 332 H Lactic Acid Calcium Total Protein Albumin 06/26/17 06/26/17 06/26/17 03:58 03:58 07:24 WBC 2.4 L RBC 3.17 L Hgb 10.0 L Hct 30.8 L MCV 97 H RDW 16.3 H Lymph % (Auto) 8.0 L [place] % (Auto) Lymph # 0.2 L Seg Neutrophils % 89.7 H POC ABG pCO2 POC ABG pO2 BUN 27 H Creatinine 1.6 H Glucose 210 H POC Glucose 189 H Lactic Acid Calcium 8.1 L Total Protein 6.2 L Albumin 3.4 L 06/26/17 06/26/17 11:03 17:01 WBC RBC Hgb Hct MCV RDW Lymph % (Auto) [place] % (Auto) Lymph # Seg Neutrophils % POC ABG pCO2 POC ABG pO2 BUN Creatinine Glucose POC Glucose 252 H 153 H Lactic Acid Calcium Total Protein Albumin - Diagnostic Findings Chest x-ray: report reviewed (Bilateral lower lobe infiltrates.), image reviewed Assessment and Plan HIS IS 81 YEAR OLD MALE admitted for shortness of breath. Patient has history of COPD and On Home O2.Patient has history of bilateral pneumonia. Again todays chest xray showing bilateral pulmonary infiltrates.Patients O2 saturation dropped to 54%. Patient presently on 2 litres O2. O2 saturation 97%.Patient denies chest pain , cough or nasal congestion.Patient complaining weakness. Patient has history of smoking . Patient says stopped smoking 27 yers ago. Denies alcohol or drug abuse. 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 Denies allergies to the medications. Patient has history of hypertension,diabetes. Patient has history of GERD. Denies heart problems or thyroid problems.Patient has history of left Inguinal hernia repair and he has some kind of procedure done on Prostate. - Patient Problems (1) COPD with acute exacerbation Current Visit: Yes Status: Acute Plan to address problem: O2 2 litres via nasal canula. Albuterol/atrovent aerosol treatments q 6 hours. Continue I/V solumedral. Patient is on Zosyn and Levaquin. Recommend Lovenox 30 mg S/C qd. Continue Famotadine. (2) Aspiration pneumonia Current Visit: No Status: Acute Qualifiers: Aspiration pneumonia type: unspecified Laterality: bilateral Lung location: unspecified part of lung Qualified Code(s): J69.0 - Pneumonitis due to inhalation of food and vomit Plan to address problem: Patient is on I/V Zosyn and levaquine. (3) Acute respiratory failure Current Visit: No Status: Acute Qualifiers: Respiratory failure complication: hypoxia Qualified Code(s): J96.01 - Acute respiratory failure with hypoxia Plan to address problem: O2 2 litres via nasal canula. Albuterol/atrovent aerosol treatments q 6 hours. Continue I/V solumedral. Patient is on Zosyn and Levaquin. Recommend Lovenox 30 mg S/C qd. Continue Famotadine. (4) Diabetes Current Visit: No Status: Chronic Qualifiers: Diabetes mellitus type: type 2 Plan to address problem: Management as per primary care. (5) HTN (hypertension) Current Visit: No Status: Chronic Qualifiers: Hypertension type: essential hypertension Qualified Code(s): I10 - Essential (primary) hypertension Plan to address problem: Management as per primary care. (6) CHANNING (acute kidney injury) Current Visit: No Status: Acute Plan to address problem: Management as per primary care and nephrology.
[2017-06-26] MEDS: LANTUS SUB-Q SCH (22:35)
[2017-06-27] MEDS: UNASYN/NS 3 GM/100 ML 3 GM/100 ML BAG IV SCH ×5 (00:33→23:36)
[2017-06-27] MEDS: AMBIEN PO PRN (00:40)
[2017-06-27] MEDS: DUONEB *Not for PRN Use IH SCH ×6 (02:53→21:50)
[2017-06-27 05:42] LABS: Hematocrit 32.4 % (35.5-45.6); Hemoglobin 10.5 gm/dl (11.8-15.2); Mean Corpuscular HGB Conc 32 % (32-34); Mean Corpuscular Hemoglobin 32 pg (28-32); Mean Corpuscular Volume 98 fl (84-94); Platelet Count 278 K/mm3 (140-440); Red Cell Distribution Width 16.7 % (13.2-15.2)
[2017-06-27 05:59] LABS: Calcium 8.5 mg/dL (8.4-10.2)
[2017-06-27] MEDS: HumaLOG SUB-Q SCH ×4 (08:34→21:35)
[2017-06-27 08:56] LABS: Band Neutrophils # (Manual) 0.3 K/mm3; Basophils % (Manual) 0 % (0.0-1.8); Eosinophils % (Manual) 0 % (0.0-4.3); Total Cells Counted 100
[2017-06-27 08:57] LABS: Anisocytosis Few; Hypochromasia Few
[2017-06-27] MEDS: NORVASC PO SCH (09:12)
[2017-06-27] MEDS: MEGACE PO SCH (09:13)
[2017-06-27] MEDS: LOPRESSOR PO SCH ×2 (09:13→21:34)
[2017-06-27] MEDS: PEPCID PO SCH (09:13)
[2017-06-27] MEDS: SODIUM CHLORIDE FLUSH SYRINGE 10 ML IV SCH ×2 (09:14→21:38)
[2017-06-27] MEDS ORDERED: HumaLOG SUB-Q ONE ×4 (10:00)
--- NOTE | 2017-06-27 10:08 | Progress Note ---
Assessment and Plan CHANNING - Resolving Prerenal Azotemia, f/u BUN/Cr on IVF CKD - Stage3 Pneumonia - On abx Subjective Date of service: 06/27/17 Interval history: No complaints. Improved SOB Objective - Vital Signs Vital signs: Vital Signs - 12hr 06/26/17 06/27/17 06/27/17 22:32 05:06 05:17 Temperature 97.6 F Pulse Rate 71 80 Pulse Rate [ Anterior Bilateral Throughout] Pulse Rate [ 84 Throughout] Respiratory 22 Rate Respiratory Rate [Anterior Bilateral Throughout] Respiratory 18 Rate [ Throughout] Blood Pressure 135/71 127/76 O2 Sat by Pulse 86 Oximetry 06/27/17 06/27/17 06/27/17 07:15 08:10 08:15 Temperature 98.4 F Pulse Rate 80 Pulse Rate [ 86 86 Anterior Bilateral Throughout] Pulse Rate [ Throughout] Respiratory 20 Rate Respiratory 16 16 Rate [Anterior Bilateral Throughout] Respiratory Rate [ Throughout] Blood Pressure 131/76 O2 Sat by Pulse 96 96 Oximetry 06/27/17 06/27/17 09:12 09:13 Temperature Pulse Rate 80 80 Pulse Rate [ Anterior Bilateral Throughout] Pulse Rate [ Throughout] Respiratory Rate Respiratory Rate [Anterior Bilateral Throughout] Respiratory Rate [ Throughout] Blood Pressure 131/76 131/76 O2 Sat by Pulse Oximetry - General Appearance General appearance: other (awake & alert) EENT: PERRL Neck: no JVD Respiratory: Present: Other (Good air entry) Cardiology: regular, S1S2 Gastrointestinal: other (Soft) Neurologic: alert and oriented x3 - Lab 06/27/17 05:13 06/27/17 05:13 Most recent lab results Calcium 8.5 mg/dL (8.4-10.2) 06/27/17 05:13 Phosphorus 3.10 mg/dL (2.5-4.5) 06/27/17 05:13 Magnesium 2.10 mg/dL (1.7-2.3) 06/25/17 11:36
--- NOTE | 2017-06-27 10:25 | Progress Note ---
Assessment and Plan Assessment and plan: Acute respiratory failure Continue oxygen and supportive care. Bipap as clinically indicated COPD with acute exacerbation IV Solumedrol, Duonebs RTC and PRN Cont. Zosyn ID following Also speech eval to r/o dysphagia CHANNING (acute kidney injury) Continue IV fluids, improving. Nephrology follow Aspiration pneumonia Speech eval pending Diabetes mellitus Type 2 SSRI coverage and accuchecks HTN (hypertension) Cont antihypertensives DVT prophylaxis cont. heparin History Interval history: Patient's respiratory status has improved. Patient appears more comfortable. Hospitalist Physical - Constitutional Vitals: Temp Pulse Resp BP Pulse Ox 98.4 F 80 16 131/76 96 06/27/17 07:15 06/27/17 09:13 06/27/17 08:15 06/27/17 09:13 06/27/17 08:15 General appearance: Present: mild distress, well-nourished - EENT Eyes: Present: PERRL, EOM intact ENT: hearing intact, clear oral mucosa, dentition normal - Neck Neck: Present: supple, normal ROM - Respiratory Respiratory effort: normal Respiratory: bilateral: diminished, wheezing - Cardiovascular Rhythm: regular Heart Sounds: Present: S1 & S2. Absent: gallop, rub - Extremities Extremities: no ischemia, No edema, Full ROM - Abdominal General gastrointestinal: soft, non-tender, non-distended, normal bowel sounds - Integumentary Integumentary: Present: clear, warm, dry - Neurologic Neurologic: CNII-XII intact, moves all extremities Results - Labs CBC & Chem 7: 06/27/17 05:13 06/27/17 05:13 Labs: Laboratory Last Values WBC 7.8 K/mm3 (4.5-11.0) 06/27/17 05:13 RBC 3.30 M/mm3 (3.65-5.03) L 06/27/17 05:13 Hgb 10.5 gm/dl (11.8-15.2) L 06/27/17 05:13 Hct 32.4 % (35.5-45.6) L 06/27/17 05:13 MCV 98 fl (84-94) H 06/27/17 05:13 MCH 32 pg (28-32) 06/27/17 05:13 MCHC 32 % (32-34) 06/27/17 05:13 RDW 16.7 % (13.2-15.2) H 06/27/17 05:13 Plt Count 278 K/mm3 (140-440) 06/27/17 05:13 Lymph % (Auto) 8.0 % (13.4-35.0) L 06/26/17 03:58 [place] % (Auto) 2.1 % (0.0-7.3) 06/26/17 03:58 Eos % (Auto) 0.1 % (0.0-4.3) 06/26/17 03:58 Baso % (Auto) 0.1 % (0.0-1.8) 06/26/17 03:58 Lymph # 0.2 K/mm3 (1.2-5.4) L 06/26/17 03:58 [place] # 0.1 K/mm3 (0.0-0.8) 06/26/17 03:58 Eos # 0.0 K/mm3 (0.0-0.4) 06/26/17 03:58 Baso # 0.0 K/mm3 (0.0-0.1) 06/26/17 03:58 Add Manual Diff Complete 06/27/17 05:13 Total Counted 100 06/27/17 05:13 Seg Neutrophils % Magnetic T[employer] Composer Operator 06/27/17 05:13 Seg Neuts % (Manual) 91.0 % (40.0-70.0) H 06/27/17 05:13 Band Neutrophils % 4.0 % 06/27/17 05:13 Lymphocytes % (Manual) 3.0 % (13.4-35.0) L 06/27/17 05:13 Reactive Lymphs % (Man) 0 % 06/27/17 05:13 Monocytes % (Manual) 2.0 % (0.0-7.3) 06/27/17 05:13 Eosinophils % (Manual) 0 % (0.0-4.3) 06/27/17 05:13 Basophils % (Manual) 0 % (0.0-1.8) 06/27/17 05:13 Metamyelocytes % 0 % 06/27/17 05:13 Myelocytes % 0 % 06/27/17 05:13 Promyelocytes % 0 % 06/27/17 05:13 Blast Cells % 0 % 06/27/17 05:13 Nucleated RBC % Not Reportable 06/27/17 05:13 Seg Neutrophils # 2.2 K/mm3 (1.8-7.7) 06/26/17 03:58 Seg Neutrophils # Man 7.1 K/mm3 (1.8-7.7) 06/27/17 05:13 Band Neutrophils # 0.3 K/mm3 06/27/17 05:13 Lymphocytes # (Manual) 0.2 K/mm3 (1.2-5.4) L 06/27/17 05:13 Abs React Lymphs (Man) 0.0 K/mm3 06/27/17 05:13 Monocytes # (Manual) 0.2 K/mm3 (0.0-0.8) 06/27/17 05:13 Eosinophils # (Manual) 0.0 K/mm3 (0.0-0.4) 06/27/17 05:13 Basophils # (Manual) 0.0 K/mm3 (0.0-0.1) 06/27/17 05:13 Metamyelocytes # 0.0 K/mm3 06/27/17 05:13 Myelocytes # 0.0 K/mm3 06/27/17 05:13 Promyelocytes # 0.0 K/mm3 06/27/17 05:13 Blast Cells # 0.0 K/mm3 06/27/17 05:13 WBC Morphology Not Reportable 06/27/17 05:13 Hypersegmented Neuts Not Reportable 06/27/17 05:13 Hyposegmented Neuts Not Reportable 06/27/17 05:13 Hypogranular Neuts Not Reportable 06/27/17 05:13 Smudge Cells Not Reportable 06/27/17 05:13 Toxic Granulation Not Reportable 06/27/17 05:13 Toxic Vacuolation Not Reportable 06/27/17 05:13 Dohle Bodies Not Reportable 06/27/17 05:13 Pelger-Huet Anomaly Not Reportable 06/27/17 05:13 Ari Rods Not Reportable 06/27/17 05:13 Platelet Estimate Appears normal 06/27/17 05:13 Clumped Platelets Not Reportable 06/27/17 05:13 Plt Clumps, EDTA Not Reportable 06/27/17 05:13 Large Platelets Not Reportable 06/27/17 05:13 Giant Platelets Not Reportable 06/27/17 05:13 Platelet Satelliting Not Reportable 06/27/17 05:13 Plt Morphology Comment Not Reportable 06/27/17 05:13 RBC Morphology Not Reportable 06/27/17 05:13 Dimorphic RBCs Not Reportable 06/27/17 05:13 Polychromasia Not Reportable 06/27/17 05:13 Hypochromasia Few 06/27/17 05:13 Poikilocytosis Not Reportable 06/27/17 05:13 Anisocytosis Few 06/27/17 05:13 Microcytosis Not Reportable 06/27/17 05:13 Macrocytosis Not Reportable 06/27/17 05:13 Spherocytes Not Reportable 06/27/17 05:13 Pappenheimer Bodies Not Reportable 06/27/17 05:13 Sickle Cells Not Reportable 06/27/17 05:13 Target Cells Not Reportable 06/27/17 05:13 Tear Drop Cells Not Reportable 06/27/17 05:13 Ovalocytes Not Reportable 06/27/17 05:13 Helmet Cells Not Reportable 06/27/17 05:13 [place] Bodies Not Reportable 06/27/17 05:13 [place] Rings Not Reportable 06/27/17 05:13 Isela Cells Not Reportable 06/27/17 05:13 Bite Cells Not Reportable 06/27/17 05:13 Crenated Cell Not Reportable 06/27/17 05:13 Elliptocytes Not Reportable 06/27/17 05:13 Acanthocytes (Spur) Not Reportable 06/27/17 05:13 Rouleaux Not Reportable 06/27/17 05:13 Hemoglobin C Crystals Not Reportable 06/27/17 05:13 Schistocytes Not Reportable 06/27/17 05:13 Malaria parasites Not Reportable 06/27/17 05:13 Yordan Bodies Not Reportable 06/27/17 05:13 Hem Pathologist Commnt No 06/27/17 05:13 PT 14.6 Sec. (12.2-14.9) 06/25/17 11:36 INR 1.08 (0.87-1.13) 06/25/17 11:36 APTT 32.6 Sec. (24.2-36.6) 06/25/17 11:36 POC ABG pH 7.394 (7.35-7.45) 06/25/17 14:43 POC ABG pCO2 47.8 (35-45) H 06/25/17 14:43 POC ABG pO2 53 (80-105) L 06/25/17 14:43 POC ABG HCO3 29.2 06/25/17 14:43 POC ABG Total CO2 31 06/25/17 14:43 POC ABG O2 Sat 87 06/25/17 14:43 POC ABG Base Excess 4 06/25/17 14:43 FiO2 30 % 06/25/17 14:43 Sodium 146 mmol/L (137-145) H 06/27/17 05:13 Potassium 4.0 mmol/L (3.6-5.0) 06/27/17 05:13 Chloride 103.0 mmol/L (98-107) 06/27/17 05:13 Carbon Dioxide 28 mmol/L (22-30) 06/27/17 05:13 Anion Gap 19 mmol/L 06/27/17 05:13 BUN 28 mg/dL (9-20) H 06/27/17 05:13 Creatinine 1.5 mg/dL (0.8-1.5) 06/27/17 05:13 Estimated GFR 54 ml/min 06/27/17 05:13 BUN/Creatinine Ratio 19 % 06/27/17 05:13 Glucose 125 mg/dL (75-100) H 06/27/17 05:13 POC Glucose 178 (70-105) H 06/27/17 07:23 Hemoglobin A1c 5.1 % (4-6) 06/25/17 11:36 Lactic Acid 3.80 mmol/L (0.7-2.0) H* 06/25/17 11:36 Calcium 8.5 mg/dL (8.4-10.2) 06/27/17 05:13 Phosphorus 3.10 mg/dL (2.5-4.5) 06/27/17 05:13 Magnesium 2.10 mg/dL (1.7-2.3) 06/25/17 11:36 Total Bilirubin 0.20 mg/dL (0.1-1.2) 06/26/17 03:58 AST 14 units/L (5-40) 06/26/17 03:58 ALT 17 units/L (7-56) 06/26/17 03:58 Alkaline Phosphatase 49 units/L (35-129) 06/26/17 03:58 Total Creatine Kinase 91 units/L (55-170) 06/25/17 11:36 CK-MB (CK-2) 2.0 ng/mL (0.0-4.0) 06/25/17 11:36 CK-MB (CK-2) Rel Index 2.1 (0-4) 06/25/17 11:36 Troponin T 0.013 ng/mL (0.00-0.029) 06/25/17 11:36 C-Reactive Protein 0.20 mg/dL (0.00-1.30) 06/26/17 12:35 Total Protein 6.2 g/dL (6.3-8.2) L 06/26/17 03:58 Albumin 3.4 g/dL (3.9-5) L 06/26/17 03:58 Albumin/Globulin Ratio 1.2 % 06/26/17 03:58 Urine Color Yellow (Yellow) 06/25/17 13:09 Urine Turbidity Clear (Clear) 06/25/17 13:09 Urine pH 5.0 (5.0-7.0) 06/25/17 13:09 Ur Specific [place] 1.018 (1.003-1.030) 06/25/17 13:09 Urine Protein 30 mg/dl mg/dL (Negative) 06/25/17 13:09 Urine Glucose (UA) Neg mg/dL (Negative) 06/25/17 13:09 Urine Ketones Neg mg/dL (Negative) 06/25/17 13:09 Urine Blood Neg (Negative) 06/25/17 13:09 Urine Nitrite Neg (Negative) 06/25/17 13:09 Urine Bilirubin Neg (Negative) 06/25/17 13:09 Urine Urobilinogen < 2.0 mg/dL (<2.0) 06/25/17 13:09 Ur Leukocyte Esterase Neg (Negative) 06/25/17 13:09 Urine WBC (Auto) 1.0 /HPF (0.0-6.0) 06/25/17 13:09 Urine RBC (Auto) 3.0 /HPF (0.0-6.0) 06/25/17 13:09 U Epithel Cells (Auto) < 1.0 /HPF (0-13.0) 06/25/17 13:09 Urine Mucus Few /HPF 06/25/17 13:09 HIV 1&2 Antibody Rapid Non react (Non React) 06/26/17 12:35 HIV P24 Antigen Non react (Non React) 06/26/17 12:35
[2017-06-27] MEDS: SODIUM CHLORIDE FLUSH SYRINGE 10 ML IV PRN ×2 (12:06→17:39)
[2017-06-27] MEDS: LANTUS SUB-Q SCH (21:35)
[2017-06-27] MEDS: LEVAQUIN 750MG/150ML 750 MG/150 ML BAG IV SCH (21:36)
[2017-06-28] MEDS: UNASYN/NS 3 GM/100 ML 3 GM/100 ML BAG IV SCH ×3 (05:03→17:17)
[2017-06-28 05:57] LABS: Hematocrit 30.3 % (35.5-45.6); Hemoglobin 9.8 gm/dl (11.8-15.2); Mean Corpuscular HGB Conc 32 % (32-34); Mean Corpuscular Hemoglobin 32 pg (28-32); Mean Corpuscular Volume 97 fl (84-94); Platelet Count 265 K/mm3 (140-440); Red Blood Count 3.11 M/mm3 (3.65-5.03)
[2017-06-28 06:41] LABS: Band Neutrophils # (Manual) 0.2 K/mm3; Basophils % (Manual) 0 % (0.0-1.8); Eosinophils % (Manual) 0 % (0.0-4.3); Monocytes % (Manual) 0 % (0.0-7.3); Total Cells Counted 100
[2017-06-28 06:42] LABS: Anisocytosis 1+; Platelet Estimate Consistent w Auto
[2017-06-28] MEDS: DUONEB *Not for PRN Use IH SCH ×5 (07:58→20:00)
[2017-06-28] MEDS: HumaLOG SUB-Q SCH ×4 (08:57→22:13)
[2017-06-28] MEDS: MEGACE PO SCH (09:00)
[2017-06-28] MEDS: NORVASC PO SCH (09:01)
[2017-06-28] MEDS: LOPRESSOR PO SCH ×2 (09:01→22:12)
[2017-06-28] MEDS: PEPCID PO SCH (09:01)
[2017-06-28] MEDS: SODIUM CHLORIDE FLUSH SYRINGE 10 ML IV SCH ×2 (09:02→22:15)
[2017-06-28] MEDS ORDERED: HumaLOG SUB-Q ONE ×3 (10:00)
--- NOTE | 2017-06-28 11:16 | Progress Note ---
Assessment and Plan Assessment and plan: Acute respiratory failure Continue oxygen and supportive care. Bipap as clinically indicated COPD with acute exacerbation IV Solumedrol, Duonebs RTC and PRN Cont. Zosyn ID following CHANNING (acute kidney injury) Continue IV fluids, improving. Nephrology follow Aspiration pneumonia Cont. abx, MBS eval Diabetes mellitus Type 2 SSRI coverage and accuchecks HTN (hypertension) Cont antihypertensives DVT prophylaxis cont. heparin History Interval history: Patient's respiratory status has improved. Patient appears more comfortable. Hospitalist Physical - Constitutional Vitals: Temp Pulse Resp BP Pulse Ox 98.7 F 76 20 125/80 96 06/28/17 07:09 06/28/17 09:01 06/28/17 07:25 06/28/17 09:01 06/28/17 07:32 General appearance: Present: no acute distress, well-nourished - EENT Eyes: Present: PERRL, EOM intact ENT: hearing intact, clear oral mucosa, dentition normal - Neck Neck: Present: supple, normal ROM - Respiratory Respiratory effort: normal Respiratory: bilateral: diminished, wheezing - Cardiovascular Rhythm: regular Heart Sounds: Present: S1 & S2. Absent: gallop, rub - Extremities Extremities: no ischemia, No edema, Full ROM - Abdominal General gastrointestinal: soft, non-tender, non-distended, normal bowel sounds - Integumentary Integumentary: Present: clear, warm, dry - Neurologic Neurologic: CNII-XII intact, moves all extremities Results - Labs CBC & Chem 7: 06/28/17 05:26 06/28/17 05:26 Labs: Laboratory Last Values WBC 6.4 K/mm3 (4.5-11.0) 06/28/17 05:26 RBC 3.11 M/mm3 (3.65-5.03) L 06/28/17 05:26 Hgb 9.8 gm/dl (11.8-15.2) L 06/28/17 05:26 Hct 30.3 % (35.5-45.6) L 06/28/17 05:26 MCV 97 fl (84-94) H 06/28/17 05:26 MCH 32 pg (28-32) 06/28/17 05:26 MCHC 32 % (32-34) 06/28/17 05:26 RDW 16.0 % (13.2-15.2) H 06/28/17 05:26 Plt Count 265 K/mm3 (140-440) 06/28/17 05:26 Lymph % (Auto) 8.0 % (13.4-35.0) L 06/26/17 03:58 [place] % (Auto) 2.1 % (0.0-7.3) 06/26/17 03:58 Eos % (Auto) 0.1 % (0.0-4.3) 06/26/17 03:58 Baso % (Auto) 0.1 % (0.0-1.8) 06/26/17 03:58 Lymph # 0.2 K/mm3 (1.2-5.4) L 06/26/17 03:58 [place] # 0.1 K/mm3 (0.0-0.8) 06/26/17 03:58 Eos # 0.0 K/mm3 (0.0-0.4) 06/26/17 03:58 Baso # 0.0 K/mm3 (0.0-0.1) 06/26/17 03:58 Add Manual Diff Complete 06/28/17 05:26 Total Counted 100 06/28/17 05:26 Seg Neutrophils % Vocational Nurse 06/28/17 05:26 Seg Neuts % (Manual) 93.0 % (40.0-70.0) H 06/28/17 05:26 Band Neutrophils % 3.0 % 06/28/17 05:26 Lymphocytes % (Manual) 4.0 % (13.4-35.0) L 06/28/17 05:26 Reactive Lymphs % (Man) 0 % 06/28/17 05:26 Monocytes % (Manual) 0 % (0.0-7.3) 06/28/17 05:26 Eosinophils % (Manual) 0 % (0.0-4.3) 06/28/17 05:26 Basophils % (Manual) 0 % (0.0-1.8) 06/28/17 05:26 Metamyelocytes % 0 % 06/28/17 05:26 Myelocytes % 0 % 06/28/17 05:26 Promyelocytes % 0 % 06/28/17 05:26 Blast Cells % 0 % 06/28/17 05:26 Nucleated RBC % Not Reportable 06/28/17 05:26 Seg Neutrophils # 2.2 K/mm3 (1.8-7.7) 06/26/17 03:58 Seg Neutrophils # Man 6.0 K/mm3 (1.8-7.7) 06/28/17 05:26 Band Neutrophils # 0.2 K/mm3 06/28/17 05:26 Lymphocytes # (Manual) 0.3 K/mm3 (1.2-5.4) L 06/28/17 05:26 Abs React Lymphs (Man) 0.0 K/mm3 06/28/17 05:26 Monocytes # (Manual) 0.0 K/mm3 (0.0-0.8) 06/28/17 05:26 Eosinophils # (Manual) 0.0 K/mm3 (0.0-0.4) 06/28/17 05:26 Basophils # (Manual) 0.0 K/mm3 (0.0-0.1) 06/28/17 05:26 Metamyelocytes # 0.0 K/mm3 06/28/17 05:26 Myelocytes # 0.0 K/mm3 06/28/17 05:26 Promyelocytes # 0.0 K/mm3 06/28/17 05:26 Blast Cells # 0.0 K/mm3 06/28/17 05:26 WBC Morphology Not Reportable 06/28/17 05:26 Hypersegmented Neuts Not Reportable 06/28/17 05:26 Hyposegmented Neuts Not Reportable 06/28/17 05:26 Hypogranular Neuts Not Reportable 06/28/17 05:26 Smudge Cells Not Reportable 06/28/17 05:26 Toxic Granulation Not Reportable 06/28/17 05:26 Toxic Vacuolation Not Reportable 06/28/17 05:26 Dohle Bodies Not Reportable 06/28/17 05:26 Pelger-Huet Anomaly Not Reportable 06/28/17 05:26 Ari Rods Not Reportable 06/28/17 05:26 Platelet Estimate Consistent w auto 06/28/17 05:26 Clumped Platelets Not Reportable 06/28/17 05:26 Plt Clumps, EDTA Not Reportable 06/28/17 05:26 Large Platelets Not Reportable 06/28/17 05:26 Giant Platelets Not Reportable 06/28/17 05:26 Platelet Satelliting Not Reportable 06/28/17 05:26 Plt Morphology Comment Not Reportable 06/28/17 05:26 RBC Morphology Not Reportable 06/28/17 05:26 Dimorphic RBCs Not Reportable 06/28/17 05:26 Polychromasia Not Reportable 06/28/17 05:26 Hypochromasia Not Reportable 06/28/17 05:26 Poikilocytosis Not Reportable 06/28/17 05:26 Anisocytosis 1+ 06/28/17 05:26 Microcytosis Not Reportable 06/28/17 05:26 Macrocytosis Not Reportable 06/28/17 05:26 Spherocytes Not Reportable 06/28/17 05:26 Pappenheimer Bodies Not Reportable 06/28/17 05:26 Sickle Cells Not Reportable 06/28/17 05:26 Target Cells Not Reportable 06/28/17 05:26 Tear Drop Cells Not Reportable 06/28/17 05:26 Ovalocytes Not Reportable 06/28/17 05:26 Helmet Cells Not Reportable 06/28/17 05:26 [place] Bodies Not Reportable 06/28/17 05:26 [place] Not Reportable 06/28/17 05:26 [place] Cells Not Reportable 06/28/17 05:26 Bite Cells Not Reportable 06/28/17 05:26 Crenated Cell Not Reportable 06/28/17 05:26 Elliptocytes Few 06/28/17 05:26 Acanthocytes (Spur) Not Reportable 06/28/17 05:26 Rouleaux Not Reportable 06/28/17 05:26 Hemoglobin C Crystals Not Reportable 06/28/17 05:26 Schistocytes Not Reportable 06/28/17 05:26 Malaria parasites Not Reportable 06/28/17 05:26 Yordan Bodies Not Reportable 06/28/17 05:26 Hem Pathologist Commnt No 06/28/17 05:26 PT 14.6 Sec. (12.2-14.9) 06/25/17 11:36 INR 1.08 (0.87-1.13) 06/25/17 11:36 APTT 32.6 Sec. (24.2-36.6) 06/25/17 11:36 POC ABG pH 7.394 (7.35-7.45) 06/25/17 14:43 POC ABG pCO2 47.8 (35-45) H 06/25/17 14:43 POC ABG pO2 53 (80-105) L 06/25/17 14:43 POC ABG HCO3 29.2 06/25/17 14:43 POC ABG Total CO2 31 06/25/17 14:43 POC ABG O2 Sat 87 06/25/17 14:43 POC ABG Base Excess 4 06/25/17 14:43 FiO2 30 % 06/25/17 14:43 Sodium 143 mmol/L (137-145) 06/28/17 05:26 Potassium 3.8 mmol/L (3.6-5.0) 06/28/17 05:26 Chloride 100.8 mmol/L (98-107) 06/28/17 05:26 Carbon Dioxide 29 mmol/L (22-30) 06/28/17 05:26 Anion Gap 17 mmol/L 06/28/17 05:26 BUN 31 mg/dL (9-20) H 06/28/17 05:26 Creatinine 1.5 mg/dL (0.8-1.5) 06/28/17 05:26 Estimated GFR 54 ml/min 06/28/17 05:26 BUN/Creatinine Ratio 21 % 06/28/17 05:26 Glucose 135 mg/dL (75-100) H 06/28/17 05:26 POC Glucose 168 (70-105) H 06/28/17 08:18 Hemoglobin A1c 5.1 % (4-6) 06/25/17 11:36 Lactic Acid 3.80 mmol/L (0.7-2.0) H* 06/25/17 11:36 Calcium 8.0 mg/dL (8.4-10.2) L 06/28/17 05:26 Phosphorus 3.20 mg/dL (2.5-4.5) 06/28/17 05:26 Magnesium 2.10 mg/dL (1.7-2.3) 06/28/17 05:26 Total Bilirubin 0.20 mg/dL (0.1-1.2) 06/26/17 03:58 AST 14 units/L (5-40) 06/26/17 03:58 ALT 17 units/L (7-56) 06/26/17 03:58 Alkaline Phosphatase 49 units/L (35-129) 06/26/17 03:58 Total Creatine Kinase 91 units/L (55-170) 06/25/17 11:36 CK-MB (CK-2) 2.0 ng/mL (0.0-4.0) 06/25/17 11:36 CK-MB (CK-2) Rel Index 2.1 (0-4) 06/25/17 11:36 Troponin T 0.013 ng/mL (0.00-0.029) 06/25/17 11:36 C-Reactive Protein 0.20 mg/dL (0.00-1.30) 06/26/17 12:35 Total Protein 6.2 g/dL (6.3-8.2) L 06/26/17 03:58 Albumin 3.4 g/dL (3.9-5) L 06/26/17 03:58 Albumin/Globulin Ratio 1.2 % 06/26/17 03:58 Urine Color Yellow (Yellow) 06/25/17 13:09 Urine Turbidity Clear (Clear) 06/25/17 13:09 Urine pH 5.0 (5.0-7.0) 06/25/17 13:09 Ur Specific [place] 1.018 (1.003-1.030) 06/25/17 13:09 Urine Protein 30 mg/dl mg/dL (Negative) 06/25/17 13:09 Urine Glucose (UA) Neg mg/dL (Negative) 06/25/17 13:09 Urine Ketones Neg mg/dL (Negative) 06/25/17 13:09 Urine Blood Neg (Negative) 06/25/17 13:09 Urine Nitrite Neg (Negative) 06/25/17 13:09 Urine Bilirubin Neg (Negative) 06/25/17 13:09 Urine Urobilinogen < 2.0 mg/dL (<2.0) 06/25/17 13:09 Ur Leukocyte Esterase Neg (Negative) 06/25/17 13:09 Urine WBC (Auto) 1.0 /HPF (0.0-6.0) 06/25/17 13:09 Urine RBC (Auto) 3.0 /HPF (0.0-6.0) 06/25/17 13:09 U Epithel Cells (Auto) < 1.0 /HPF (0-13.0) 06/25/17 13:09 Urine Mucus Few /HPF 06/25/17 13:09 HIV 1&2 Antibody Rapid Non react (Non React) 06/26/17 12:35 HIV P24 Antigen Non react (Non React) 06/26/17 12:35
--- NOTE | 2017-06-28 12:00 | Progress Note ---
Assessment and Plan CHANNING - F/u BUN/Cr on IVF CKD - Stage3 HTN - F/u on meds Pneumonia - On abx Subjective Date of service: 06/28/17 Interval history: No complaints. Improved SOB Objective - Vital Signs Vital signs: Vital Signs - 12hr 06/28/17 06/28/17 06/28/17 05:01 07:09 07:25 Temperature 98.4 F 98.7 F Pulse Rate 69 76 Pulse Rate [ 76 Anterior Bilateral Throughout] Pulse Rate [ Apical] Respiratory 20 Rate Respiratory 20 Rate [Anterior Bilateral Throughout] Blood Pressure 125/80 Blood Pressure 131/75 [Right] O2 Sat by Pulse 95 99 Oximetry 06/28/17 06/28/17 06/28/17 07:32 09:01 10:00 Temperature Pulse Rate 76 Pulse Rate [ Anterior Bilateral Throughout] Pulse Rate [ 82 Apical] Respiratory Rate Respiratory Rate [Anterior Bilateral Throughout] Blood Pressure 125/80 Blood Pressure [Right] O2 Sat by Pulse 96 96 Oximetry - General Appearance General appearance: other (Awake & alert) Neck: no JVD Respiratory: Present: Other (Good air entry) Cardiology: regular, S1S2 Gastrointestinal: normal Neurologic: alert and oriented x3 - Lab 06/28/17 05:26 06/28/17 05:26 Most recent lab results Calcium 8.0 mg/dL (8.4-10.2) L 06/28/17 05:26 Phosphorus 3.20 mg/dL (2.5-4.5) 06/28/17 05:26 Magnesium 2.10 mg/dL (1.7-2.3) 06/28/17 05:26
--- NOTE | 2017-06-28 12:10 | Progress Note ---
Assessment and Plan Acute respiratory hypoxic failure COPD with acute exacerbation CHANNING (acute kidney injury) Aspiration pneumonia Diabetes mellitus Type 2 HTN (hypertension) - continue supplemental oxygen to keep O2 Sats > 90% - stop Unasyn after 5 days of therapy - send sputum C&S - repeat CXR in am - begin systemic steroids taper and follow symptomatically - continue glycemic control with SSI - azotemia should improve further with steroid taper - continue DVT prophylaxis - continue other care per attending / other consultants ......care plan discussed with patient and caregiver in room ....35' Subjective Date of service: 06/28/17 Principal diagnosis: COPD with AE, Acute hypoxic respiratory failure Interval history: No acute overnight events reported. Feels better. denies any chest pain, no cough, chest pain is improving. Seen and examined. Vitals, labs, medications, chart reviewed. Objective - Exam Narrative Exam: General appearance: Alert in NAD, conversant , older gentleman Eyes: anicteric sclerae, moist conjunctivae; no lid-lag; PERRLA HENT: Atraumatic; oropharynx clear Neck: Trachea midline; supple, no thyromegaly or lymphadenopathy Lungs: distant and romario rhinchi CV: RRR, no murmurs Abdomen: Soft, non-tender; no masses or hepatosplenomegaly Extremities: No peripheral edema or extremity lymphadenopathy Skin: Normal temperature, turgor and texture; no rash, ulcers or subcutaneous nodules Psych: Appropriate affect, alert and oriented to person, place and time. Neuro: alert and oriented x 3. Moving all extermities Vital Signs - 12hr 06/28/17 06/28/17 06/28/17 05:01 07:09 07:25 Temperature 98.4 F 98.7 F Pulse Rate 69 76 Pulse Rate [ 76 Anterior Bilateral Throughout] Pulse Rate [ Apical] Respiratory 20 Rate Respiratory 20 Rate [Anterior Bilateral Throughout] Blood Pressure 125/80 Blood Pressure 131/75 [Right] O2 Sat by Pulse 95 99 Oximetry 06/28/17 06/28/17 06/28/17 07:32 09:01 10:00 Temperature Pulse Rate 76 Pulse Rate [ Anterior Bilateral Throughout] Pulse Rate [ 82 Apical] Respiratory Rate Respiratory Rate [Anterior Bilateral Throughout] Blood Pressure 125/80 Blood Pressure [Right] O2 Sat by Pulse 96 96 Oximetry Constitutional: alert, other (Mild shortness of breath at rest.) Eyes: non-icteric ENT: oropharynx moist Neck: supple, no JVD Ascultation: Bilateral: diminished breath sounds (Prolonged expiratory phase.) Cardiovascular: regular rate and rhythm Gastrointestinal: normoactive bowel sounds, soft, non-tender Integumentary: normal Extremities: no cyanosis, no edema, other (Stasis dermatitis.) Neurologic: normal mental status, non-focal exam, pupils equal and round, CN II- XII normal Psychiatric: mood appropriate CBC and BMP: 06/29/17 13:54 06/30/17 05:39 ABG, PT/INR, D-dimer: ABG POC ABG pH 7.394 (7.35-7.45) 06/25/17 14:43 POC ABG pCO2 47.8 (35-45) H 06/25/17 14:43 POC ABG pO2 53 (80-105) L 06/25/17 14:43 POC ABG HCO3 29.2 06/25/17 14:43 POC ABG Total CO2 31 06/25/17 14:43 POC ABG O2 Sat 87 06/25/17 14:43 PT/INR, D-dimer PT 14.6 Sec. (12.2-14.9) 06/25/17 11:36 INR 1.08 (0.87-1.13) 06/25/17 11:36 Abnormal lab findings: Abnormal Labs 06/25/17 06/25/17 06/25/17 11:36 11:36 11:36 WBC 4.0 L RBC 3.23 L Hgb 10.2 L Hct 32.1 L MCV 99 H RDW 16.4 H Lymph % (Auto) [place] % (Auto) 10.4 H Lymph # 0.7 L Seg Neutrophils % 71.2 H Seg Neuts % (Manual) Lymphocytes % (Manual) Lymphocytes # (Manual) POC ABG pCO2 POC ABG pO2 Sodium BUN 21 H Creatinine 1.7 H Glucose 146 H POC Glucose Lactic Acid 3.80 H* Calcium Total Protein Albumin 3.7 L 06/25/17 06/25/17 06/25/17 14:43 17:08 21:07 WBC RBC Hgb Hct MCV RDW Lymph % (Auto) [place] % (Auto) Lymph # Seg Neutrophils % Seg Neuts % (Manual) Lymphocytes % (Manual) Lymphocytes # (Manual) POC ABG pCO2 47.8 H POC ABG pO2 53 L Sodium BUN Creatinine Glucose POC Glucose 149 H 332 H Lactic Acid Calcium Total Protein Albumin 06/26/17 06/26/17 06/26/17 03:58 03:58 07:24 WBC 2.4 L RBC 3.17 L Hgb 10.0 L Hct 30.8 L MCV 97 H RDW 16.3 H Lymph % (Auto) 8.0 L [place] % (Auto) Lymph # 0.2 L Seg Neutrophils % 89.7 H Seg Neuts % (Manual) Lymphocytes % (Manual) Lymphocytes # (Manual) POC ABG pCO2 POC ABG pO2 Sodium BUN 27 H Creatinine 1.6 H Glucose 210 H POC Glucose 189 H Lactic Acid Calcium 8.1 L Total Protein 6.2 L Albumin 3.4 L 06/26/17 06/26/17 06/26/17 11:03 17:01 21:41 WBC RBC Hgb Hct MCV RDW Lymph % (Auto) [place] % (Auto) Lymph # Seg Neutrophils % Seg Neuts % (Manual) Lymphocytes % (Manual) Lymphocytes # (Manual) POC ABG pCO2 POC ABG pO2 Sodium BUN Creatinine Glucose POC Glucose 252 H 153 H 285 H Lactic Acid Calcium Total Protein Albumin 06/27/17 06/27/17 06/27/17 05:13 05:13 07:23 WBC RBC 3.30 L Hgb 10.5 L Hct 32.4 L MCV 98 H RDW 16.7 H Lymph % (Auto) [place] % (Auto) Lymph # Seg Neutrophils % Seg Neuts % (Manual) 91.0 H Lymphocytes % (Manual) 3.0 L Lymphocytes # (Manual) 0.2 L POC ABG pCO2 POC ABG pO2 Sodium 146 H BUN 28 H Creatinine Glucose 125 H POC Glucose 178 H Lactic Acid Calcium Total Protein Albumin 06/27/17 06/27/17 06/27/17 11:20 16:29 21:14 WBC RBC Hgb Hct MCV RDW Lymph % (Auto) [place] % (Auto) Lymph # Seg Neutrophils % Seg Neuts % (Manual) Lymphocytes % (Manual) Lymphocytes # (Manual) POC ABG pCO2 POC ABG pO2 Sodium BUN Creatinine Glucose POC Glucose 272 H 152 H 326 H Lactic Acid Calcium Total Protein Albumin 06/28/17 06/28/17 06/28/17 05:14 05:26 05:26 WBC RBC 3.11 L Hgb 9.8 L Hct 30.3 L MCV 97 H RDW 16.0 H Lymph % (Auto) [place] % (Auto) Lymph # Seg Neutrophils % Seg Neuts % (Manual) 93.0 H Lymphocytes % (Manual) 4.0 L Lymphocytes # (Manual) 0.3 L POC ABG pCO2 POC ABG pO2 Sodium BUN 31 H Creatinine Glucose 135 H POC Glucose 149 H Lactic Acid Calcium 8.0 L Total Protein Albumin 06/28/17 08:18 WBC RBC Hgb Hct MCV RDW Lymph % (Auto) [place] % (Auto) Lymph # Seg Neutrophils % Seg Neuts % (Manual) Lymphocytes % (Manual) Lymphocytes # (Manual) POC ABG pCO2 POC ABG pO2 Sodium BUN Creatinine Glucose POC Glucose 168 H Lactic Acid Calcium Total Protein Albumin
[2017-06-28] MEDS: SODIUM CHLORIDE FLUSH SYRINGE 10 ML IV PRN ×3 (12:40→17:18)
--- NOTE | 2017-06-28 15:41 | Progress Note ---
Assessment and Plan Assessment: 1) Acute Respiratory failure: from COPD exacerbation+/-pna - better 2) Bilateral pneumonia: Aspiration vs. CAP -CRP 0.2 -HIV neg 3) COPD exacerbation - better 4) Anemia/neutropenia 5) CHANNING-better Plan: -continue Levaquin and Unasyn -f/u legionella and strep urine antigens -swallowing eval -upon discharge will do levaquin 750 mg po qday total 7 days I am signing off Thank you for your consultation, will follow up with you. Yuli Durán MD Infectious Diseases Specialist [facility] ([facility]) M [phone] O [phone] Subjective Date of service: 06/28/17 Principal diagnosis: COPD with AE, Acute hypoxic respiratory failure Interval history: Feels better, no fever, mild cough Microbiology: none Current Antimicrobials: Zosyn 06/26 Levaquin 06/25 Previous Antimicrobials: Objective - Exam Narrative Exam: General appearance: Alert in NAD, conversant Eyes: anicteric sclerae, moist conjunctivae; no lid-lag; PERRLA HENT: Atraumatic; oropharynx clear Neck: Trachea midline; supple, no thyromegaly or lymphadenopathy Lungs: distant BS CV: RRR, no murmurs Abdomen: Soft, non-tender; no masses or hepatosplenomegaly Extremities: No peripheral edema or extremity lymphadenopathy Skin: Normal temperature, turgor and texture; no rash, ulcers or subcutaneous nodules Psych: Appropriate affect, alert and oriented to person, place and time. Neuro: alert and oriented x 3. Moving all extermities Lines: No CVL / PICC - Constitutional Vitals: Vital Signs Temp Pulse Resp BP Pulse Ox 99.0 F 73 24 121/73 97 06/28/17 14:18 06/28/17 14:18 06/28/17 14:18 06/28/17 14:18 06/28/17 14:18 Temperature -Last 24 Hours Temperature 99.0 F Temperature 98.7 F Temperature 98.4 F Temperature 98.8 F Temperature 98.5 F - Labs CBC & Chem 7: 06/28/17 05:26 06/28/17 05:26 Labs: Abnormal lab results 06/27/17 06/27/17 06/28/17 Range/Units 16:29 21:14 05:14 RBC (3.65-5.03) M/mm3 Hgb (11.8-15.2) gm/dl Hct (35.5-45.6) % MCV (84-94) fl RDW (13.2-15.2) % Seg Neuts % (Manual) (40.0-70.0) % Lymphocytes % (Manual) (13.4-35.0) % Lymphocytes # (Manual) (1.2-5.4) K/mm3 BUN (9-20) mg/dL Glucose (75-100) mg/dL POC Glucose 152 H 326 H 149 H (70-105) Calcium (8.4-10.2) mg/dL 06/28/17 06/28/17 06/28/17 Range/Units 05:26 05:26 08:18 RBC 3.11 L (3.65-5.03) M/mm3 Hgb 9.8 L (11.8-15.2) gm/dl Hct 30.3 L (35.5-45.6) % MCV 97 H (84-94) fl RDW 16.0 H (13.2-15.2) % Seg Neuts % (Manual) 93.0 H (40.0-70.0) % Lymphocytes % (Manual) 4.0 L (13.4-35.0) % Lymphocytes # (Manual) 0.3 L (1.2-5.4) K/mm3 BUN 31 H (9-20) mg/dL Glucose 135 H (75-100) mg/dL POC Glucose 168 H (70-105) Calcium 8.0 L (8.4-10.2) mg/dL 06/28/17 Range/Units 11:42 RBC (3.65-5.03) M/mm3 Hgb (11.8-15.2) gm/dl Hct (35.5-45.6) % MCV (84-94) fl RDW (13.2-15.2) % Seg Neuts % (Manual) (40.0-70.0) % Lymphocytes % (Manual) (13.4-35.0) % Lymphocytes # (Manual) (1.2-5.4) K/mm3 BUN (9-20) mg/dL Glucose (75-100) mg/dL POC Glucose 181 H (70-105) Calcium (8.4-10.2) mg/dL
[2017-06-28] MEDS: GLUCOPHAGE PO SCH (17:17)
[2017-06-28] MEDS: LANTUS SUB-Q SCH (22:14)
[2017-06-29] MEDS: UNASYN/NS 3 GM/100 ML 3 GM/100 ML BAG IV SCH ×5 (00:10→23:18)
[2017-06-29] MEDS: HumaLOG SUB-Q SCH ×4 (07:45→23:20)
[2017-06-29] MEDS: DUONEB *Not for PRN Use IH SCH ×6 (07:59→22:10)
--- NOTE | 2017-06-29 08:27 | Progress Note ---
Assessment and Plan Assessment and plan: Acute respiratory failure Continue oxygen and supportive care. Bipap as clinically indicated COPD with acute exacerbation IV Solumedrol--start taper, Duonebs and O2 Cont. Zosyn ID following CHANNING (acute kidney injury) Continue IV fluids, improving. Nephrology follow Aspiration pneumonia Cont. abx per infectious disease, MBS eval Diabetes mellitus Type 2 SSRI coverage and accuchecks HTN (hypertension) Cont antihypertensives DVT prophylaxis cont. heparin History Interval history: Patient's respiratory status has improved. Patient appears more comfortable. Hospitalist Physical - Constitutional Vitals: Temp Pulse Resp BP Pulse Ox 98.8 F 95 H 18 115/71 96 06/29/17 04:21 06/29/17 08:08 06/29/17 08:08 06/29/17 04:21 06/29/17 08:02 General appearance: Present: no acute distress, well-nourished - EENT Eyes: Present: PERRL, EOM intact ENT: hearing intact, clear oral mucosa, dentition normal - Neck Neck: Present: supple, normal ROM - Respiratory Respiratory effort: normal Respiratory: bilateral: diminished, wheezing - Cardiovascular Rhythm: regular Heart Sounds: Present: S1 & S2. Absent: gallop, rub - Extremities Extremities: no ischemia, No edema, Full ROM - Abdominal General gastrointestinal: soft, non-tender, non-distended, normal bowel sounds - Integumentary Integumentary: Present: clear, warm, dry - Neurologic Neurologic: CNII-XII intact, moves all extremities Results - Labs CBC & Chem 7: 06/28/17 05:26 06/28/17 05:26 Labs: Laboratory Last Values WBC 6.4 K/mm3 (4.5-11.0) 06/28/17 05:26 RBC 3.11 M/mm3 (3.65-5.03) L 06/28/17 05:26 Hgb 9.8 gm/dl (11.8-15.2) L 06/28/17 05:26 Hct 30.3 % (35.5-45.6) L 06/28/17 05:26 MCV 97 fl (84-94) H 06/28/17 05:26 MCH 32 pg (28-32) 06/28/17 05:26 MCHC 32 % (32-34) 06/28/17 05:26 RDW 16.0 % (13.2-15.2) H 06/28/17 05:26 Plt Count 265 K/mm3 (140-440) 06/28/17 05:26 Lymph % (Auto) 8.0 % (13.4-35.0) L 06/26/17 03:58 [place] % (Auto) 2.1 % (0.0-7.3) 06/26/17 03:58 Eos % (Auto) 0.1 % (0.0-4.3) 06/26/17 03:58 Baso % (Auto) 0.1 % (0.0-1.8) 06/26/17 03:58 Lymph # 0.2 K/mm3 (1.2-5.4) L 06/26/17 03:58 [place] # 0.1 K/mm3 (0.0-0.8) 06/26/17 03:58 Eos # 0.0 K/mm3 (0.0-0.4) 06/26/17 03:58 Baso # 0.0 K/mm3 (0.0-0.1) 06/26/17 03:58 Add Manual Diff Complete 06/28/17 05:26 Total Counted 100 06/28/17 05:26 Seg Neutrophils % [place]immer Meat 06/28/17 05:26 Seg Neuts % (Manual) 93.0 % (40.0-70.0) H 06/28/17 05:26 Band Neutrophils % 3.0 % 06/28/17 05:26 Lymphocytes % (Manual) 4.0 % (13.4-35.0) L 06/28/17 05:26 Reactive Lymphs % (Man) 0 % 06/28/17 05:26 Monocytes % (Manual) 0 % (0.0-7.3) 06/28/17 05:26 Eosinophils % (Manual) 0 % (0.0-4.3) 06/28/17 05:26 Basophils % (Manual) 0 % (0.0-1.8) 06/28/17 05:26 Metamyelocytes % 0 % 06/28/17 05:26 Myelocytes % 0 % 06/28/17 05:26 Promyelocytes % 0 % 06/28/17 05:26 Blast Cells % 0 % 06/28/17 05:26 Nucleated RBC % Not Reportable 06/28/17 05:26 Seg Neutrophils # 2.2 K/mm3 (1.8-7.7) 06/26/17 03:58 Seg Neutrophils # Man 6.0 K/mm3 (1.8-7.7) 06/28/17 05:26 Band Neutrophils # 0.2 K/mm3 06/28/17 05:26 Lymphocytes # (Manual) 0.3 K/mm3 (1.2-5.4) L 06/28/17 05:26 Abs React Lymphs (Man) 0.0 K/mm3 06/28/17 05:26 Monocytes # (Manual) 0.0 K/mm3 (0.0-0.8) 06/28/17 05:26 Eosinophils # (Manual) 0.0 K/mm3 (0.0-0.4) 06/28/17 05:26 Basophils # (Manual) 0.0 K/mm3 (0.0-0.1) 06/28/17 05:26 Metamyelocytes # 0.0 K/mm3 06/28/17 05:26 Myelocytes # 0.0 K/mm3 06/28/17 05:26 Promyelocytes # 0.0 K/mm3 06/28/17 05:26 Blast Cells # 0.0 K/mm3 06/28/17 05:26 WBC Morphology Not Reportable 06/28/17 05:26 Hypersegmented Neuts Not Reportable 06/28/17 05:26 Hyposegmented Neuts Not Reportable 06/28/17 05:26 Hypogranular Neuts Not Reportable 06/28/17 05:26 Smudge Cells Not Reportable 06/28/17 05:26 Toxic Granulation Not Reportable 06/28/17 05:26 Toxic Vacuolation Not Reportable 06/28/17 05:26 Dohle Bodies Not Reportable 06/28/17 05:26 Pelger-Huet Anomaly Not Reportable 06/28/17 05:26 Ari Rods Not Reportable 06/28/17 05:26 Platelet Estimate Consistent w auto 06/28/17 05:26 Clumped Platelets Not Reportable 06/28/17 05:26 Plt Clumps, EDTA Not Reportable 06/28/17 05:26 Large Platelets Not Reportable 06/28/17 05:26 Giant Platelets Not Reportable 06/28/17 05:26 Platelet Satelliting Not Reportable 06/28/17 05:26 Plt Morphology Comment Not Reportable 06/28/17 05:26 RBC Morphology Not Reportable 06/28/17 05:26 Dimorphic RBCs Not Reportable 06/28/17 05:26 Polychromasia Not Reportable 06/28/17 05:26 Hypochromasia Not Reportable 06/28/17 05:26 Poikilocytosis Not Reportable 06/28/17 05:26 Anisocytosis 1+ 06/28/17 05:26 Microcytosis Not Reportable 06/28/17 05:26 Macrocytosis Not Reportable 06/28/17 05:26 Spherocytes Not Reportable 06/28/17 05:26 Pappenheimer Bodies Not Reportable 06/28/17 05:26 Sickle Cells Not Reportable 06/28/17 05:26 Target Cells Not Reportable 06/28/17 05:26 Tear Drop Cells Not Reportable 06/28/17 05:26 Ovalocytes Not Reportable 06/28/17 05:26 Helmet Cells Not Reportable 06/28/17 05:26 [place] Bodies Not Reportable 06/28/17 05:26 [place] Rings Not Reportable 06/28/17 05:26 Isela Cells Not Reportable 06/28/17 05:26 Bite Cells Not Reportable 06/28/17 05:26 Crenated Cell Not Reportable 06/28/17 05:26 Elliptocytes Few 06/28/17 05:26 Acanthocytes (Spur) Not Reportable 06/28/17 05:26 Rouleaux Not Reportable 06/28/17 05:26 Hemoglobin C Crystals Not Reportable 06/28/17 05:26 Schistocytes Not Reportable 06/28/17 05:26 Malaria parasites Not Reportable 06/28/17 05:26 Yordan Bodies Not Reportable 06/28/17 05:26 Hem Pathologist Commnt No 06/28/17 05:26 PT 14.6 Sec. (12.2-14.9) 06/25/17 11:36 INR 1.08 (0.87-1.13) 06/25/17 11:36 APTT 32.6 Sec. (24.2-36.6) 06/25/17 11:36 POC ABG pH 7.394 (7.35-7.45) 06/25/17 14:43 POC ABG pCO2 47.8 (35-45) H 06/25/17 14:43 POC ABG pO2 53 (80-105) L 06/25/17 14:43 POC ABG HCO3 29.2 06/25/17 14:43 POC ABG Total CO2 31 06/25/17 14:43 POC ABG O2 Sat 87 06/25/17 14:43 POC ABG Base Excess 4 06/25/17 14:43 FiO2 30 % 06/25/17 14:43 Sodium 143 mmol/L (137-145) 06/28/17 05:26 Potassium 3.8 mmol/L (3.6-5.0) 06/28/17 05:26 Chloride 100.8 mmol/L (98-107) 06/28/17 05:26 Carbon Dioxide 29 mmol/L (22-30) 06/28/17 05:26 Anion Gap 17 mmol/L 06/28/17 05:26 BUN 31 mg/dL (9-20) H 06/28/17 05:26 Creatinine 1.5 mg/dL (0.8-1.5) 06/28/17 05:26 Estimated GFR 54 ml/min 06/28/17 05:26 BUN/Creatinine Ratio 21 % 06/28/17 05:26 Glucose 135 mg/dL (75-100) H 06/28/17 05:26 POC Glucose 149 (70-105) H 06/29/17 07:47 Hemoglobin A1c 5.1 % (4-6) 06/25/17 11:36 Lactic Acid 3.80 mmol/L (0.7-2.0) H* 06/25/17 11:36 Calcium 8.0 mg/dL (8.4-10.2) L 06/28/17 05:26 Phosphorus 3.20 mg/dL (2.5-4.5) 06/28/17 05:26 Magnesium 2.10 mg/dL (1.7-2.3) 06/28/17 05:26 Total Bilirubin 0.20 mg/dL (0.1-1.2) 06/26/17 03:58 AST 14 units/L (5-40) 06/26/17 03:58 ALT 17 units/L (7-56) 06/26/17 03:58 Alkaline Phosphatase 49 units/L (35-129) 06/26/17 03:58 Total Creatine Kinase 91 units/L (55-170) 06/25/17 11:36 CK-MB (CK-2) 2.0 ng/mL (0.0-4.0) 06/25/17 11:36 CK-MB (CK-2) Rel Index 2.1 (0-4) 06/25/17 11:36 Troponin T 0.013 ng/mL (0.00-0.029) 06/25/17 11:36 C-Reactive Protein 0.20 mg/dL (0.00-1.30) 06/26/17 12:35 Total Protein 6.2 g/dL (6.3-8.2) L 06/26/17 03:58 Albumin 3.4 g/dL (3.9-5) L 06/26/17 03:58 Albumin/Globulin Ratio 1.2 % 06/26/17 03:58 Urine Color Yellow (Yellow) 06/25/17 13:09 Urine Turbidity Clear (Clear) 06/25/17 13:09 Urine pH 5.0 (5.0-7.0) 06/25/17 13:09 Ur Specific [place] 1.018 (1.003-1.030) 06/25/17 13:09 Urine Protein 30 mg/dl mg/dL (Negative) 06/25/17 13:09 Urine Glucose (UA) Neg mg/dL (Negative) 06/25/17 13:09 Urine Ketones Neg mg/dL (Negative) 06/25/17 13:09 Urine Blood Neg (Negative) 06/25/17 13:09 Urine Nitrite Neg (Negative) 06/25/17 13:09 Urine Bilirubin Neg (Negative) 06/25/17 13:09 Urine Urobilinogen < 2.0 mg/dL (<2.0) 06/25/17 13:09 Ur Leukocyte Esterase Neg (Negative) 06/25/17 13:09 Urine WBC (Auto) 1.0 /HPF (0.0-6.0) 06/25/17 13:09 Urine RBC (Auto) 3.0 /HPF (0.0-6.0) 06/25/17 13:09 U Epithel Cells (Auto) < 1.0 /HPF (0-13.0) 06/25/17 13:09 Urine Mucus Few /HPF 06/25/17 13:09 HIV 1&2 Antibody Rapid Non react (Non React) 06/26/17 12:35 HIV P24 Antigen Non react (Non React) 06/26/17 12:35
[2017-06-29] MEDS: GLUCOPHAGE PO SCH ×2 (08:45→17:36)
--- NOTE | 2017-06-29 09:17 | Progress Note ---
Assessment and Plan 1. Acute kidney injury: Hemodynamic CHANNING superimposed on CKD stage 3 in the setting of volume depletion. Restart IV fluids. Monitor renal function. 2. CKD stage 3. 3. Acute on chronic hypoxic respiratory failure. 4. Bilateral PNA. 5. Anemia. Subjective Date of service: 06/29/17 Principal diagnosis: COPD with AE, Acute hypoxic respiratory failure Interval history: Patient was seen and examined at the bedside. Objective - Vital Signs Vital signs: Vital Signs - 12hr 06/28/17 06/28/17 06/29/17 22:00 22:12 04:21 Temperature 98.8 F Pulse Rate 90 Pulse Rate [ Anterior Bilateral Throughout] Pulse Rate [ 90 Apical] Respiratory 18 Rate Respiratory Rate [Anterior Bilateral Throughout] Blood Pressure 122/66 115/71 O2 Sat by Pulse Oximetry 06/29/17 06/29/17 06/29/17 07:40 08:01 08:02 Temperature 98.6 F Pulse Rate 72 Pulse Rate [ 94 H Anterior Bilateral Throughout] Pulse Rate [ Apical] Respiratory 20 Rate Respiratory 18 Rate [Anterior Bilateral Throughout] Blood Pressure 137/93 O2 Sat by Pulse 99 96 Oximetry 06/29/17 08:08 Temperature Pulse Rate Pulse Rate [ 95 H Anterior Bilateral Throughout] Pulse Rate [ Apical] Respiratory Rate Respiratory 18 Rate [Anterior Bilateral Throughout] Blood Pressure O2 Sat by Pulse Oximetry - General Appearance General appearance: well-developed, appears stated age, other (no distress) EENT: ATNC, PERRL Neck: supple Respiratory: Present: Clear to Ascultation Cardiology: regular, S1S2, no murmurs Gastrointestinal: normoactive bowel sounds, no tenderness, no distended Integumentary: no rash, warm and dry Neurologic: no focal deficit, no asterixis, confused, disoriented Musculoskeletal: other (no edema) Psychiatric: mood/affect appropriate, cooperative - Lab 06/28/17 05:26 06/28/17 05:26 Most recent lab results Calcium 8.0 mg/dL (8.4-10.2) L 06/28/17 05:26 Phosphorus 3.20 mg/dL (2.5-4.5) 06/28/17 05:26 Magnesium 2.10 mg/dL (1.7-2.3) 06/28/17 05:26
[2017-06-29] MEDS: MEGACE PO SCH (10:37)
[2017-06-29] MEDS: PEPCID PO SCH (10:39)
[2017-06-29] MEDS: NORVASC PO SCH (10:43)
[2017-06-29] MEDS: LOPRESSOR PO SCH ×2 (10:43→23:19)
[2017-06-29] MEDS: SODIUM CHLORIDE FLUSH SYRINGE 10 ML IV SCH ×2 (10:44→23:22)
--- NOTE | 2017-06-29 12:32 | Progress Note ---
Assessment and Plan Acute on Chronic Hypoxemic respiratory failure COPD with acute exacerbation CHANNING (acute kidney injury) Aspiration pneumonia Diabetes mellitus Type 2 HTN (hypertension) DVT prophylaxis - continue supplemental oxygen to keep O2 Sats > 90% - stop Unasyn after 5 days of therapy - send sputum C&S - repeat CXR in am - begin systemic steroids taper and follow symptomatically - continue glycemic control with SSI - azotemia should improve further with steroid taper - add DVT prophylaxis - continue other care per attending / other consultants ......care plan discussed with patient and caregiver in room ....35' Subjective Date of service: 06/29/17 Principal diagnosis: COPD with AE, Acute on Chronic hypoxemic respiratory failure Interval history: Patient seen today for: COPD with AE, Acute on Chronic hypoxemic respiratory failure Seen and examined at bedside; 24-hour events reviewed; nursing and respiratory care staff consulted; no adverse overnight events reported to me; resting in bed ; remains on oxygen at 3L NC; denies acute chest painss or increased SOB and overall feels better; No N/V/F/C; + cough with clear baseline phlegm production Objective Vital Signs - 12hr 06/29/17 06/29/17 06/29/17 04:21 07:40 08:01 Temperature 98.8 F 98.6 F Pulse Rate 72 Pulse Rate [ 94 H Anterior Bilateral Throughout] Respiratory 18 20 Rate Respiratory 18 Rate [Anterior Bilateral Throughout] Blood Pressure 115/71 137/93 O2 Sat by Pulse 99 Oximetry 06/29/17 06/29/17 06/29/17 08:02 08:08 10:43 Temperature Pulse Rate 82 Pulse Rate [ 95 H Anterior Bilateral Throughout] Respiratory Rate Respiratory 18 Rate [Anterior Bilateral Throughout] Blood Pressure 101/57 O2 Sat by Pulse 96 Oximetry Constitutional: alert, other (Mild shortness of breath at rest.) Eyes: non-icteric ENT: oropharynx moist, other (mallampatti 2) Neck: supple, no lymphadenopathy, no JVD, other (no thyromegaly) Effort: mildly labored Ascultation: Bilateral: diminished breath sounds (Prolonged expiratory phase.), wheezes (faint expiratory posterior lung camacho), other (diminished bilateral BS ) Percussion: Bilateral: not dull Cardiovascular: regular rate and rhythm, other (no rubs or murmurs) Gastrointestinal: normoactive bowel sounds, soft, non-tender, non-distended, other (no palpable HSM) Integumentary: rash (stasis dermatitis) Extremities: no cyanosis, no edema, pulses normal, no ischemia or petechiae Neurologic: normal mental status, non-focal exam, pupils equal and round, CN II- XII normal, motor strength normal and Psychiatric: mood appropriate, affect normal CBC and BMP: 06/29/17 13:54 06/30/17 05:39 ABG, PT/INR, D-dimer: ABG POC ABG pH 7.394 (7.35-7.45) 06/25/17 14:43 POC ABG pCO2 47.8 (35-45) H 06/25/17 14:43 POC ABG pO2 53 (80-105) L 06/25/17 14:43 POC ABG HCO3 29.2 06/25/17 14:43 POC ABG Total CO2 31 06/25/17 14:43 POC ABG O2 Sat 87 06/25/17 14:43 PT/INR, D-dimer PT 14.6 Sec. (12.2-14.9) 06/25/17 11:36 INR 1.08 (0.87-1.13) 06/25/17 11:36 Abnormal lab findings: Abnormal Labs 06/25/17 06/25/17 06/25/17 11:36 11:36 11:36 WBC 4.0 L RBC 3.23 L Hgb 10.2 L Hct 32.1 L MCV 99 H RDW 16.4 H Lymph % (Auto) [place] % (Auto) 10.4 H Lymph # 0.7 L Seg Neutrophils % 71.2 H Seg Neuts % (Manual) Lymphocytes % (Manual) Lymphocytes # (Manual) POC ABG pCO2 POC ABG pO2 Sodium BUN 21 H Creatinine 1.7 H Glucose 146 H POC Glucose Lactic Acid 3.80 H* Calcium Total Protein Albumin 3.7 L 06/25/17 06/25/17 06/25/17 14:43 17:08 21:07 WBC RBC Hgb Hct MCV RDW Lymph % (Auto) [place] % (Auto) Lymph # Seg Neutrophils % Seg Neuts % (Manual) Lymphocytes % (Manual) Lymphocytes # (Manual) POC ABG pCO2 47.8 H POC ABG pO2 53 L Sodium BUN Creatinine Glucose POC Glucose 149 H 332 H Lactic Acid Calcium Total Protein Albumin 06/26/17 06/26/17 06/26/17 03:58 03:58 07:24 WBC 2.4 L RBC 3.17 L Hgb 10.0 L Hct 30.8 L MCV 97 H RDW 16.3 H Lymph % (Auto) 8.0 L [place] % (Auto) Lymph # 0.2 L Seg Neutrophils % 89.7 H Seg Neuts % (Manual) Lymphocytes % (Manual) Lymphocytes # (Manual) POC ABG pCO2 POC ABG pO2 Sodium BUN 27 H Creatinine 1.6 H Glucose 210 H POC Glucose 189 H Lactic Acid Calcium 8.1 L Total Protein 6.2 L Albumin 3.4 L 06/26/17 06/26/17 06/26/17 11:03 17:01 21:41 WBC RBC Hgb Hct MCV RDW Lymph % (Auto) [place] % (Auto) Lymph # Seg Neutrophils % Seg Neuts % (Manual) Lymphocytes % (Manual) Lymphocytes # (Manual) POC ABG pCO2 POC ABG pO2 Sodium BUN Creatinine Glucose POC Glucose 252 H 153 H 285 H Lactic Acid Calcium Total Protein Albumin 06/27/17 06/27/17 06/27/17 05:13 05:13 07:23 WBC RBC 3.30 L Hgb 10.5 L Hct 32.4 L MCV 98 H RDW 16.7 H Lymph % (Auto) [place] % (Auto) Lymph # Seg Neutrophils % Seg Neuts % (Manual) 91.0 H Lymphocytes % (Manual) 3.0 L Lymphocytes # (Manual) 0.2 L POC ABG pCO2 POC ABG pO2 Sodium 146 H BUN 28 H Creatinine Glucose 125 H POC Glucose 178 H Lactic Acid Calcium Total Protein Albumin 06/27/17 06/27/17 06/27/17 11:20 16:29 21:14 WBC RBC Hgb Hct MCV RDW Lymph % (Auto) [place] % (Auto) Lymph # Seg Neutrophils % Seg Neuts % (Manual) Lymphocytes % (Manual) Lymphocytes # (Manual) POC ABG pCO2 POC ABG pO2 Sodium BUN Creatinine Glucose POC Glucose 272 H 152 H 326 H Lactic Acid Calcium Total Protein Albumin 06/28/17 06/28/17 06/28/17 05:14 05:26 05:26 WBC RBC 3.11 L Hgb 9.8 L Hct 30.3 L MCV 97 H RDW 16.0 H Lymph % (Auto) [place] % (Auto) Lymph # Seg Neutrophils % Seg Neuts % (Manual) 93.0 H Lymphocytes % (Manual) 4.0 L Lymphocytes # (Manual) 0.3 L POC ABG pCO2 POC ABG pO2 Sodium BUN 31 H Creatinine Glucose 135 H POC Glucose 149 H Lactic Acid Calcium 8.0 L Total Protein Albumin 06/28/17 06/28/17 06/28/17 08:18 11:42 16:31 WBC RBC Hgb Hct MCV RDW Lymph % (Auto) [place] % (Auto) Lymph # Seg Neutrophils % Seg Neuts % (Manual) Lymphocytes % (Manual) Lymphocytes # (Manual) POC ABG pCO2 POC ABG pO2 Sodium BUN Creatinine Glucose POC Glucose 168 H 181 H 109 H Lactic Acid Calcium Total Protein Albumin 06/28/17 06/29/17 06/29/17 21:58 07:47 12:07 WBC RBC Hgb Hct MCV RDW Lymph % (Auto) [place] % (Auto) Lymph # Seg Neutrophils % Seg Neuts % (Manual) Lymphocytes % (Manual) Lymphocytes # (Manual) POC ABG pCO2 POC ABG pO2 Sodium BUN Creatinine Glucose POC Glucose 291 H 149 H 247 H Lactic Acid Calcium Total Protein Albumin Chest x-ray: image reviewed Allied health notes reviewed: nursing
[2017-06-29 14:17] LABS: Basophils % (Auto) 0.2 % (0.0-1.8); Hematocrit 33.9 % (35.5-45.6); Hemoglobin 10.9 gm/dl (11.8-15.2); Lymphocytes # (Auto) 0.3 K/mm3 (1.2-5.4); Lymphocytes % (Auto) 4.5 % (13.4-35.0); Mean Corpuscular HGB Conc 32 % (32-34); Mean Corpuscular Hemoglobin 32 pg (28-32); Mean Corpuscular Volume 98 fl (84-94); Monocytes # (Auto) 0.4 K/mm3 (0.0-0.8); Monocytes % (Auto) 6.9 % (0.0-7.3); Platelet Count 257 K/mm3 (140-440); Red Blood Count 3.47 M/mm3 (3.65-5.03); Red Cell Distribution Width 16.1 % (13.2-15.2)
[2017-06-29 14:28] LABS: Calcium 8.1 mg/dL (8.4-10.2)
[2017-06-29] MEDS: NACL 0.45% 1000 ML 1,000 ML IV SCH (14:34)
--- NOTE | 2017-06-29 14:35 | Fluoroscopy Report ---
MODIFIED BARIUM SWALLOW History: dysphagia. Findings: Video radiography was provided by the radiologist for speech therapy to assess the swallowing mechanism. One fluoroscopic image was captured. Impression: Successful modified barium swallow.
[2017-06-29] MEDS ORDERED: LEVAQUIN PO SCH (22:00)
[2017-06-29] MEDS: LANTUS SUB-Q SCH (23:20)
[2017-06-30] MEDS: NACL 0.45% 1000 ML 1,000 ML IV SCH (05:29)
[2017-06-30] MEDS: UNASYN/NS 3 GM/100 ML 3 GM/100 ML BAG IV SCH (05:30)
[2017-06-30] MEDS: HumaLOG SUB-Q SCH ×2 (07:30→12:20)
[2017-06-30] MEDS: DUONEB *Not for PRN Use IH SCH ×2 (08:00→14:02)
--- NOTE | 2017-06-30 08:03 | Progress Note ---
Assessment and Plan 1. Acute kidney injury: Hemodynamic CHANNING superimposed on CKD stage 3 in the setting of volume depletion. Renal function is better today. 2. CKD stage 3. 3. Acute on chronic hypoxic respiratory failure. 4. Bilateral PNA: Improving. 5. Anemia. D/w hospitalist. Subjective Date of service: 06/30/17 Principal diagnosis: COPD with AE, Acute hypoxic respiratory failure Interval history: Patient was seen and examined at the bedside. Objective - Vital Signs Vital signs: Vital Signs - 12hr 06/29/17 06/29/17 06/29/17 20:16 22:00 22:51 Temperature 99.2 F Pulse Rate 91 H Pulse Rate [ 87 Anterior Bilateral Throughout] Respiratory 20 18 Rate Respiratory 20 Rate [Anterior Bilateral Throughout] Blood Pressure 119/72 O2 Sat by Pulse 95 Oximetry 06/29/17 06/30/17 06/30/17 23:19 07:20 07:22 Temperature Pulse Rate 91 H Pulse Rate [ 72 Anterior Bilateral Throughout] Respiratory Rate Respiratory 18 Rate [Anterior Bilateral Throughout] Blood Pressure 119/72 O2 Sat by Pulse 100 Oximetry - General Appearance General appearance: well-developed, appears stated age, frail, other (no distress) EENT: ATNC, PERRL, hearing intact, vision intact Neck: supple Respiratory: Present: Clear to Ascultation Cardiology: regular, S1S2, no murmurs Gastrointestinal: normoactive bowel sounds, no tenderness Integumentary: no rash, warm and dry Neurologic: no focal deficit, no asterixis, confused, disoriented Musculoskeletal: other (no edema) Psychiatric: mood/affect appropriate, cooperative - Lab 06/29/17 13:54 06/30/17 05:39 Most recent lab results Calcium 8.0 mg/dL (8.4-10.2) L 06/30/17 05:39 Phosphorus 3.20 mg/dL (2.5-4.5) 06/28/17 05:26 Magnesium 2.10 mg/dL (1.7-2.3) 06/28/17 05:26
--- NOTE | 2017-06-30 08:37 | XRay Report ---
AP CHEST: HISTORY: Follow up pneumonia Patchy peribronchial infiltrate in both lower lung zones has nearly resolved since 06/25/17 exam. There is mild residual opacity at the right lung base. No large pleural effusion or pneumothorax. Heart size is borderline. The thoracic cage is intact. IMPRESSION: Near resolution of the bilateral lower lung infiltrates or edema.
[2017-06-30] MEDS ORDERED: LOVENOX SUB-Q SCH ×2 (10:00)
[2017-06-30] MEDS: MEGACE PO SCH (10:18)
[2017-06-30] MEDS: NORVASC PO SCH (10:18)
[2017-06-30] MEDS: LOPRESSOR PO SCH (10:18)
[2017-06-30] MEDS: PEPCID PO SCH (10:18)
[2017-06-30] MEDS: GLUCOPHAGE PO SCH (10:21)
[2017-06-30] MEDS: SODIUM CHLORIDE FLUSH SYRINGE 10 ML IV SCH (10:21)
[2017-06-30 16:09] VITALS: BP 123/73
--- NOTE | 2017-06-30 16:42 | Discharge Summary ---
Providers - Providers Date of Admission: 06/25/17 15:17 Date of discharge: 06/30/17 Attending physician: MANN BENITO 06/25/17 21:21 Consult to Physician [CONS] Routine Consulting Provider: EMANUEL GARCIA Reason For Exam: Copd exacerbation Place consult to:: Dr. Garcia Notified:: Dr. Dowell Phone number called:: [phone] Was contact made?: Yes If yes, spoke with:: [facility] Time called:: 09:15 06/26/17 07:51 Speech Therapy Evaluation and Treat [CONS] Routine Reason For Exam: possible Dysphagia -Aspiration 06/26/17 07:52 Consult to Physician [CONS] Routine Consulting Provider: JOSE BEARD Reason For Exam: Aspiration pneumonia?? Notified:: yes 06/26/17 07:54 Consult to Physician [CONS] Routine Consulting Provider: SHARONDA ORDONEZ Reason For Exam: CHANNING Notified:: yes Primary care physician: [facility] Hospitalization Reason for admission: worsening shortness of breath Condition: Stable Pertinent studies: Chest x-ray; 06/25/2017 ;bilateral lower lobe infiltrates concerning for pneumonia/possible aspiration Modified barium swallow; normal study Repeat chest x-ray/06/30/2017; near dissolution of the bilateral lower lung infiltrates Hospital course: A pleasant 81-year-old male patient with multiple medical problems hypertension congestive heart failure diabetes was admitted through emergency room with worsening shortness of breath of 2 days ' duration Initial evaluation is consistent with bilateral pneumonia, possible aspiration An acute on chronic respiratory failure We didn't symptomatically managed with oxygen nebulizers IV steroids IV antibiotics, patient also had modified barium swallow which was within normal limits Patient is on home oxygen, follows with pulmonary Patient was evaluated by ID, cultures are negative today to Also had acute kidney injury due to vasomotor nephropathy, evaluated by nephrology Renal function significantly improved Patient 's symptoms significantly improved, cultures are negative to date Today's comfortable in bed no new complaints, vital signs are stable Physical examination is unremarkable Advised antibiotics, and prednisone pack Patient advised to continue home oxygen as before Follow-up with pulmonary and nephrology per schedule Patient is hemodynamically and clinically stable at discharge Disposition: [id number] HOME UNDER HOME [facility] Time spent for discharge: 32 min - Discharge Diagnoses (1) Acute and chronic respiratory failure ([id number]) Status: Acute (2) Aspiration pneumonia Status: Acute Qualifiers: Aspiration pneumonia type: unspecified Laterality: bilateral Lung location: unspecified part of lung Qualified Code(s): J69.0 - Pneumonitis due to inhalation of food and vomit (3) COPD with acute exacerbation Status: Acute (4) CHANNING (acute kidney injury) Status: Acute (5) Diabetes Status: Chronic Qualifiers: Diabetes mellitus type: type 2 (6) HTN (hypertension) Status: Chronic Qualifiers: Hypertension type: essential hypertension Qualified Code(s): I10 - Essential (primary) hypertension Core Measure Documentation - Palliative Care Palliative Care/ Comfort Measures: Not Applicable - Core Measures Any of the following diagnoses?: none Exam - Constitutional Vitals: Temp Pulse Resp BP Pulse Ox 98.6 F 86 20 123/73 97 06/30/17 15:47 06/30/17 15:47 06/30/17 15:47 06/30/17 15:47 06/30/17 15:47 General appearance: Present: no acute distress, well-nourished - EENT Eyes: Present: PERRL, EOM intact - Neck Neck: Present: supple, normal ROM - Respiratory Respiratory effort: normal Respiratory: bilateral: diminished, rhonchi, negative: rales, wheezing - Cardiovascular Rhythm: regular Heart Sounds: Present: S1 & S2 - Extremities Extremities: no ischemia, No edema - Abdominal General gastrointestinal: Present: soft, non-tender, non-distended, normal bowel sounds - Integumentary Integumentary: Present: clear, warm - Musculoskeletal Musculoskeletal: strength equal bilaterally - Psychiatric Psychiatric: appropriate mood/affect, cooperative - Neurologic Neurologic: CNII-XII intact, moves all extremities Plan Activity: advance as tolerated, fall precautions Diet: low salt, diabetic Additional Instructions: Continue home oxygen as before Follow up with: GANGA TOLEDO MD [Primary Care Provider] - 3-5 Days SHARONDA ORDONEZ MD [Staff Physician] - 7 Days EMANUEL GARCIA MD [Staff Physician] - 7 Days Prescriptions: Levofloxacin [Levaquin TAB] 500 mg PO QDAY #5 tablet Prednisone [predniSONE 10 mg (6-Day Pack, 21 Tabs)] 10 mg PO .TAPER #1 tab.ds.pk
[2017-06-30] MEDS ORDERED: DUONEB *Not for PRN Use IH SCH (20:00)
== END 2017-06-30 18:45 | disposition home health service (06) | DRG 177 ==
LOC: ED 10:52 → 2B-ACE 15:17
PROVIDERS: ADMIT Internal Medicine; ATTEND Internal Medicine
PROC: 4A033R1 Measurement of Arterial Saturation, Peripheral, Percutaneous Approach (ICD-10-PCS; principal; 2017-06-25)
DX: J69.0 Pneumonitis due to inhalation of food and vomit (principal); N17.0 Acute kidney failure with tubular necrosis; J96.21 Acute and chronic respiratory failure with hypoxia; J44.1 Chronic obstructive pulmonary disease with (acute) exacerbation; I13.0 Hypertensive heart and chronic kidney disease with heart failure and stage 1 through stage 4 chronic kidney disease, or unspecified chronic kidney disease; Z87.891 Personal history of nicotine dependence; I50.9 Heart failure, unspecified; N40.0 Benign prostatic hyperplasia without lower urinary tract symptoms; E11.22 Type 2 diabetes mellitus with diabetic chronic kidney disease; N18.3 Chronic kidney disease, stage 3 (moderate); Z99.81 Dependence on supplemental oxygen; Z87.01 Personal history of pneumonia (recurrent); D64.9 Anemia, unspecified; D70.9 Neutropenia, unspecified; K21.9 Gastro-esophageal reflux disease without esophagitis
CPT/HCPCS: 36415; 71045; 74230; 80048; 80053; 81001; 82140; 82550; 82553; 82803; 82962; 83036; 83735; 84100; 84484; 85007; 85025; 85610; 85730; 86140; 87806; 93005; 93010; 94640; 94760; 96374; 96375; G8996-GN; G8997-GN; J0295; J0696; J1650; J1815; J1956; J2543; J2930; J7030

== ENCOUNTER 2017-07-26 19:07 | Emergency (ER) | payer MEDICARE ==
[2017-07-26] MEDS ORDERED: LEVOPHED DRIP 4 MG/NS 250 ML 4 MG/250 ML BAG IV ONE (19:31)
[2017-07-26] MEDS ORDERED: INTROPIN DRIP 800 MG/D5W 250 ML 800 MG/250 ML BAG IV ONE (19:31)
--- NOTE | 2017-07-26 19:39 | Emergency Department Report ---
HPI - General Time Seen by Provider: 07/26/17 19:30 - HPI HPI: Room 19 The patient is an 81-year-old male presenting with chief complaint cardiac arrest. Per EMS the patient was a witnessed arrest. EMS states they've arrived on scene at 18:24 on the patient in PEA. Patient was intubated and ACLS protocols continued administering 5 rounds of epinephrine and 1 amp of sodium bicarbonate prior to arrival. Upon arrival to the ED the patient was still found to be in PEA and ACLS protocols were continued. There was transient return of spontaneous circulation 2 however patient eventually succumbed Location: Cardiovascular system Duration: [See above] Quality: Cardiac arrest, PEA Severity: Severe Modifying factors: [see above] Context: [see above] Mode of transportation: [not driving] ED Past Medical Hx - Past Medical History Hx Hypertension: Yes Hx Congestive Heart Failure: Yes Hx Diabetes: Yes Hx COPD: Yes Additional medical history: BPH, pneumonia - Surgical History Additional Surgical History: hernia - Family History Family history: no significant - Social History Smoking Status: Unknown if ever smoked - Medications Home Medications: Home Medications Medication Instructions Recorded Confirmed Last Taken Type Metoprolol [Lopressor TAB] 50 mg PO BID 12/03/16 06/25/17 06/25/17 History Ranitidine HCl [Zantac 300 MG TAB] 300 mg PO BID 12/03/16 06/25/17 06/25/17 History Amlodipine Besylate [Norvasc] 10 mg PO QDAY 06/25/17 06/25/17 06/25/17 History Insulin Glargine,Hum.rec.anlog 10 units SUB-Q HS 06/25/17 06/25/17 06/24/17 History [Lantus Solostar] Ipratropium/Albuterol Sulfate 1 puff IH QID 06/25/17 06/25/17 06/25/17 History [Combivent Respimat] Ipratropium/Albuterol Sulfate 1 ampul IH QID 06/25/17 06/25/17 06/25/17 History [DUONEB *Not for PRN Use*] Losartan/Hydrochlorothiazide 1 each PO QDAY 06/25/17 06/25/17 06/25/17 History [Losartan-Hctz 100-25 mg Tab] Megestrol [Megace] 5 ml PO QAM 06/25/17 06/25/17 06/25/17 History metFORMIN [Glucophage] 500 mg PO BID 06/25/17 06/25/17 06/25/17 History Levofloxacin [Levaquin TAB] 500 mg PO QDAY #5 tablet 06/30/17 Unknown Rx Prednisone [predniSONE 10 mg 10 mg PO .TAPER #1 tab.ds.pk 06/30/17 Unknown Rx (6-Day Pack, 21 Tabs)] ED Review of Systems ROS: Stated complaint: CARDIAC ARREST Other details as noted in HPI Comment: Unobtainable due to pts medical conditions Physical Exam - Physical Exam Physical Exam: GENERAL: The patient is well-developed well-nourished male lying on stretcher receiving chest compressions and being bagged via ET tube. [] HEENT: Normocephalic. Atraumatic. NECK: Trachea midline CHEST/LUNGS: Clear to auscultation. Breath sounds equal bilaterally with bagging HEART/CARDIOVASCULAR: No heart sounds upon arrival. PEA on monitor ABDOMEN: Abdomen is soft SKIN: There is no diaphoresis. NEURO: GCS 3T MUSCULOSKELETAL: There is no evidence of acute injury. ED Medical Decision Making - Differential Diagnosis cardiac arrest Critical care attestation.: If time is entered above; I have spent that time in minutes in the direct care of this critically ill patient, excluding procedure time. ED Disposition Clinical Impression: Cardiac arrest Disposition: Z-[id number] HOSPICE- MED FAC Is pt being admited?: No Does the pt Need Aspirin: No Condition: Poor Time of Disposition: 19:34 (patient )
== END 2017-07-26 22:10 ==
LOC: ED 19:07
DX: I46.9 Cardiac arrest, cause unspecified (principal); I11.0 Hypertensive heart disease with heart failure; I50.9 Heart failure, unspecified; E11.9 Type 2 diabetes mellitus without complications; J44.9 Chronic obstructive pulmonary disease, unspecified; Z79.4 Long term (current) use of insulin
CPT/HCPCS: 93005; 93010; 99285